=== PATIENT | male | born 1945 | race Caucasian/White ===

== ENCOUNTER 2016-03-25 09:40 | Inpatient (IN) | payer MEDICARE ==
[~2016-03-25] VITALS: Ht 172.7 cm; Wt 80.2 kg
[2016-03-29] MEDS ORDERED: ENAL20TA PO (15:53)
[2016-03-29] MEDS ORDERED: METF500T PO (15:53)
[2016-03-29] MEDS ORDERED: ROSU40 PO (15:53)
[2016-06-17] MEDS ORDERED: OXYC1TAB35 PO (10:44)
[2016-06-21] MEDS ORDERED: LACTATED RINGER'S 1000 ML IV SCH (11:15)
[2016-06-21] MEDS ORDERED: POVIDONE IODINE 7.5% SCRUB 118 ML BOTTLE TOP SCH (11:15)
[2016-06-21] MEDS ORDERED: ceFAZolin 2 GM PREMIX 50 ML IV SCH (11:15)
[2016-06-21] MEDS ORDERED: METOPROLOL TARTRATE 25 MG TAB PO PRN (11:15)
[2016-06-21] MEDS ORDERED: VANCOMYCIN 1000 MG/NS 250 ML (for <70 kg) IV SCH ×2 (11:15)
[2016-06-21] MEDS ORDERED: INSULIN HUMAN REGULAR 1,000 UNITS/10 ML VIAL SQ PRN (11:15)
[2016-06-21] MEDS ORDERED: SODIUM CHLORID 0.9% 500 ML IV SCH (11:15)
--- NOTE | 2016-06-21 11:26 | MH ---
cc: MATT MCNEILL M.D. DATE OF ADMISSION: 06/21/2016 ADMISSION DIAGNOSIS Lumbar spinal stenosis with instability. HISTORY This is a 70-year-old male with significant hip and leg pain, right greater than left. Investigative studies show evidence of high-grade stenosis at L4-5 and L5-S1. The patient has remarkable discogenic changes at L5-S1 and a grade 1 spondylolisthesis at L4 5. The patient had a previous laminectomy performed elsewhere. The patient has failed conservative measures. The patient has had extensive conservative care which is outlined in the attached records. He presents for surgical treatment. PAST MEDICAL HISTORY, SOCIAL HISTORY, FAMILY HISTORY, REVIEW OF SYSTEMS See attached notes. PHYSICAL EXAMINATION GENERAL: A 70-year-old male with moderate distress with his back, hip and legs. HEENT: Normocephalic, atraumatic. Pupils equal, round, reactive to light and accommodation. Extraocular motions intact. NECK: Supple. CHEST: Clear. HEART: Regular rate and rhythm. ABDOMEN: Soft, nontender with normoactive bowel sounds. MUSCULOSKELETAL EXAMINATION: Thoracolumbar spine with restricted range of motion, pain with range of motion. Straight leg raising is positive bilaterally. Motor examination shows weakness of the right extensor hallucis longus. IMPRESSION 1. Lumbar spinal stenosis L4-5 and L5-S1. 2. Lumbar instability. 3. Lumbar radiculopathy. 4. Status post lumbar laminectomy syndrome. 5. Discogenic low back pain, L5-S1. 6. Spondylolisthesis L4 5, grade 1 PLAN Right lumbar laminectomy L4-5 and L5-S1, lateral recess decompression, foraminal decompression, posterior spinal fusion, posterior spinal segmental instrumentation, posterior interbody fusion, placement of interbody cages. CONSENT There are risks with surgery including infection, bleeding, loss of motion, continued pain, need for further surgery, neurologic and vascular injury. The patient understands these issues and wishes to press on with surgery as outlined above. MD NICK Peerz/KARO /9:40 PM /10:22 AM [facility]ITALBina
[2016-06-21] MEDS ORDERED: NEOSTIGMINE 3 MG/3 ML SYR IV ONE (12:31)
[2016-06-21] MEDS ORDERED: ePHEDrine/NS 25 MG/5 ML SYR IV ONE (12:31)
[2016-06-21] MEDS ORDERED: ONDANSETRON HCL 4 MG/2 ML VIAL IV PUSH ONE (12:31)
[2016-06-21] MEDS ORDERED: PROPOFOL 200 MG/20 ML AMP IV ONE (12:31)
[2016-06-21] MEDS ORDERED: FAMOTIDINE 20 MG/2 ML VIAL ONE (13:10)
[2016-06-21] MEDS ORDERED: MIDAZOLAM HCL 2 MG/2 ML VIAL ONE (13:10)
[2016-06-21] MEDS ORDERED: GENTAMICIN SULFATE 80 MG/2 ML VIAL ONE (13:39)
[2016-06-21] MEDS ORDERED: HYDROmorphone HCL PF 2 MG/ML VIAL ONE (14:58)
[2016-06-21] MEDS ORDERED: ceFAZolin INJ 1,000 MG VIAL IV ONE (18:18)
[2016-06-21] MEDS ORDERED: ACETAMINOPHEN 1000 MG/100 ML VIAL IV ONE (18:31)
[2016-06-21] MEDS ORDERED: oxyCODONE/ACETAMINOPHEN 5 MG/325 MG TAB PO PRN ×2 (18:45)
[2016-06-21] MEDS ORDERED: NALOXONE HCL 0.4 MG/ML AMP IV PRN (18:45)
[2016-06-21] MEDS ORDERED: BISACODYL 10 MG SUPP PR PRN (18:45)
[2016-06-21] MEDS ORDERED: SODIUM CHLORIDE 0.9% FLUSH 5 ML FLUSH IVF PRN (18:45)
[2016-06-21] MEDS ORDERED: ONDANSETRON HCL 4 MG/2 ML VIAL IV PRN (18:45)
[2016-06-21] MEDS ORDERED: Post-op Orders (for Pharmacy) MISC XX ONE (18:45)
[2016-06-21] MEDS ORDERED: ALUMINUM/MAGNESIUM/SIMETH 30 ML CUP PO PRN (18:45)
[2016-06-21] MEDS ORDERED: SOD PHOSPHATE/SOD BIPHOSPHATE (ADULT) ENEMA 133ML PR PRN (18:45)
[2016-06-21] MEDS ORDERED: MORPHINE SULFATE 8 MG/ML INJ IV PUSH PRN (18:45)
--- NOTE | 2016-06-21 18:46 | PD.OP ---
cc: Kodak Cotter MD Operative Report Date of Surgery: Jun 21, 2016 Preoperative Diagnosis: Status post lumbar laminectomy syndrome. Lumbar spinal stenosis, L4 5 and moderate to severe. Lumbar spinal stenosis L5-S1, moderate. Right greater than left lumbosacral radiculopathy. Discogenic low back pain, L5-S1. Spondylolisthesis, L4 5, grade 1 Postoperative Diagnosis: Same Procedure: Lumbar laminectomy from the right L4, L5, lateral recess decompression, foraminal decompression with subtotal facet resection. Revision lumbar laminectomy from the right L5, S1, lateral recess decompression was subtotal facet resection. Posterior spinal fusion, lateral transverse process technique, L4 to S1. Posterior spinal segmental instrumentation, L4 to S1. Posterior lateral interbody fusion L4 5 and L5-S1. Placement of interbody cages, L4 5 and L5-S1. Major bone grafting of the lumbar spine Anesthesia: Gen. Surgeon: Kodak Cotter Hair Spring Cutter(s): HUE Best Operation and Findings: EBL: 300 cc INDICATION: This patient is a 71-year-old male status post previous laminectomy at L5 from the right side. The patient has debilitating back pain and leg pain. Studies shows evidence of very advanced discogenic changes at L5-S1 with significant bone marrow edema. In addition, there is a moderate to high-grade stenosis at L4 5 with a grade 1 spondylolisthesis. He has right leg pain predominantly. He presents for the above procedure after extensive conservative care that dates back over a year for treatment of back and leg pain. Treatment has included injections, oral medications, bracing, altered activities and physical therapy. He now presents for surgical treatment. NOTE: Yoselin Best PA-C was present for the entire surgical procedure as my certified first assistant. In my medical opinion her skill and care was necessary for the proper management of this patient. PROCEDURE: The patient was brought to the operating room and anesthetized in the supine position. The patient was rolled to a prone position on a Adebayo frame on a Lg table. All pressure points were protected in the back was scrubbed with alcohol followed by Hibiclens followed by ChloraPrep and draped sterilely. A timeout was done and antibiotics were given. AP and lateral radiographic images were used to identify the proper levels and perform skin markings. We started from the right side at the L4 5 level. A paramedian incision was made and a midline fascial incision was made. A dilating system was placed down to the interlaminar space and held provisionally to the side of the table. A high-speed bur under the microscope was used to perform a bilateral laminectomy from that side. A lateral recess decompression was accomplished. A subtotal facet resection was accomplished. The crossing and exiting nerve roots were completely decompressed. An annulotomy was performed. A total discectomy was accomplished. All of the disc was removed from the disc space. The disc was then prepared for a cage. On the back table a combination of autogenous bone graft and stem cell material was mixed with demineralized bone matrix. This prepared on the back table to be used for bone grafting. The bone graft was placed into the disc space between the operative level. A Stax lordotic cage was placed in the center between the endplates at that level. There was no complication. The alignment was satisfactory. No significant bleeding was encountered. The wound was irrigated copiously. The fascia was closed with interrupted 0 Vicryl suture. We moved to the L5-S1 level. A separate fascial incision was made. A dilating system was placed down to the interlaminar space and held provisionally to the side of the table. The microscope was brought back into the field. A high- speed bur under the microscope was used to perform a revision laminectomy from that side. A lateral recess decompression bilaterally was accomplished using straight and angled Kerrison punches. A partial medial facetectomy was accomplished. The crossing and exiting nerve roots were completely decompressed. A total discectomy was accomplished. The endplates were prepared for bone grafting. On the back table additional bone graft was prepared and injected into the disc space. A 25 mm Stax cage was positioned and elevated to 9 mm. No complication was noted. Percutaneous screws were placed on the same side with a sequence of a small fascial incision, a bur down to the pedicle under fluoroscopy and placement of the guidepin within the proper position of the vertebral body. This measured carefully tapped and proper length screws were positioned. A percutaneous benson was positioned according to superintendent horticulture's recommendation and tightened. Wounds irrigated copiously bone graft placed along the transverse process across that region. The fascia was closed with interrupted Vicryl suture subcutaneous history of suture and skin with running intradermal 3-0 Vicryl followed by Steri-Strips The attention directed to the opposite side. Percutaneous screws were positioned. Under fluoroscopy a small incision was made. An kacie was placed down through the pedicle followed by placement of a guide pin and measured and tapped for proper screw. Screws were positioned at L4, L5 and S1 as on the contralateral side. The screws were advanced and a percutaneous benson was placed according to superintendent horticulture's recommendation. This was then tightened. The wound was irrigated. Bone graft was placed along the transverse processes across that region. The fascia was closed with interrupted Vicryl suture, subcutaneous tissue with 2-0 Vicryl suture and skin with running intradermal 3- 0 Vicryl. Intraoperative x-rays were obtained alignment was satisfactory rotation was noted.. The sponge count needle counts and instrument counts were all correct. The patient tolerated procedure well was taken to the recovery room in satisfactory condition. FINDINGS: There was evidence of significant instability both at L4 5 and L5-S1. A moderate amount of scar tissue at L5-S1 was noted. There was some scar tissue even seen at the L4 5 level. The final decompression was very satisfactory. No complication was appreciated. There was no evidence of any compression upon the nerve roots at any level. Kodak Cotter MD Jun 21, 2016 18:46
[2016-06-21] MEDS ORDERED: OXYC1TAB63 PO (18:48)
[2016-06-21] MEDS ORDERED: GLUCAGON 1 MG/ML VIAL IM/SQ PRN (19:00)
[2016-06-21] MEDS ORDERED: DEXTROSE 50% IN WATER 50 ML VIAL(D50) IV PRN (19:00)
[2016-06-21] MEDS: MORPHINE SULFATE 30 MG/30 ML PCA IV SCH (19:25)
[2016-06-21] MEDS ORDERED: fentaNYL CITRATE 250 MCG/5 ML AMP ONE (19:31)
[2016-06-21] MEDS: LACTATED RINGER'S 1000 ML INJ 1,000 ML IV SCH (19:35)
[2016-06-21] MEDS: INSULIN NovoLIN REGULAR SUPPLEMENTAL SCALE SQ SCH (20:04)
[2016-06-21] MEDS: ATORVASTATIN 80 MG TAB PO SCH (20:12)
[2016-06-21] MEDS: SODIUM CHLORIDE 0.9% FLUSH 5 ML FLUSH IVF SCH (20:13)
--- NOTE | 2016-06-21 20:30 | RADRPT ---
EXAM DATE/TIME: 06/21/2016 18:16 [facility] COMPARISON: No previous studies available for comparison. INDICATIONS : Lumbar fusion, L4-5 and L5-S1. MEDICAL HISTORY : Unobtainable. SURGICAL HISTORY : Unobtainable. ENCOUNTER: Initial ACUITY: 1 day PAIN SCORE: Non-responsive. LOCATION: Lumbar. FINDINGS: Status post lumbar spinal surgery with fusion L4-5 and L5-S1. There is good alignment of the lower iris mbar spine and fusion. The hardware is grossly intact. CONCLUSION: Good alignment and position on this postoperative view. Von Forbes MD on June 21, 2016 at 20:28 Board Certified Radiologist. This report was verified electronically.
[2016-06-21] MEDS ORDERED: *morphine SULFATE 8 MG/ML PERIprocedure ONLY ONE (20:37)
[2016-06-21] MEDS ORDERED: ZOLPIDEM TARTRATE 5 MG TAB PO PRN (21:00)
[2016-06-21 21:11] VITALS: BP 121/64; PULSE 94; RESP 20; TEMP 97.6; O2SAT 98
[2016-06-21] MEDS: PCA - TOTAL MG MORPHINE DELIVERED PER SHIFT SCH (21:56)
[2016-06-21 22:00] VITALS: O2SAT 97
[2016-06-22] VITALS (7 sets, daily range): BP systolic 101–131; BP diastolic 60–75; PULSE 69–96; RESP 18–20; TEMP 96.5–97.7; O2SAT 95–100
[2016-06-22] MEDS: PCA - TOTAL MG MORPHINE DELIVERED PER SHIFT SCH (05:28)
[2016-06-22] MEDS: LACTATED RINGER'S 1000 ML INJ 1,000 ML IV SCH ×2 (06:03→19:33)
[2016-06-22] MEDS: INSULIN NovoLIN REGULAR SUPPLEMENTAL SCALE SQ SCH ×4 (06:03→21:12)
[2016-06-22] MEDS: MORPHINE SULFATE 30 MG/30 ML PCA IV SCH (06:04)
[2016-06-22 06:37] LABS: HEMATOCRIT 39.8 % (39.0-51.0); REVIEW FLAG FINAL
[2016-06-22] MEDS: ENALAPRIL MALEATE 10 MG TAB PO SCH (07:48)
[2016-06-22] MEDS: SODIUM CHLORIDE 0.9% FLUSH 5 ML FLUSH IVF SCH ×2 (07:49→21:13)
[2016-06-22] MEDS: metFORMIN HCL 500 MG TAB PO SCH ×2 (09:00→17:50)
--- NOTE | 2016-06-22 13:14 | HHI.DCPOC ---
Discharge Care Plan Diagnosis: (1) Lumbar spine instability (2) Lumbar spinal stenosis Your Health Problems Are: Incision/Drains Goals to Promote Your Health * To prevent worsening of your condition and complications * To maintain your health at the optimal level Directions to Meet Your Goals Take your medications as prescribed Follow your dietary instruction Follow activity as directed Keep your appointments as scheduled Take your immunizations and boosters as scheduled If your symptoms worsen call your PCP, if no PCP go to Urgent Care Center or Emergency Room Smoking is Dangerous to Your Health. Avoid second hand smoke Call the 24-hour hour crisis hotline for domestic abuse at Margi Tillman Jun 22, 2016 13:14
--- NOTE | 2016-06-22 13:16 | HHI.DS ---
Discharge Summary Admission Date Jun 21, 2016 at 10:41 Discharge Date: Jun 23, 2016 Admitting Diagnosis see below Diagnosis: (1) Lumbar spinal stenosis Diagnosis: Principal (2) Lumbar spine instability Diagnosis: Principal Procedures Laminectomy L45, Revision laminectomy L5S1 from right, Posterior lumbar fusion with interbody cages L4-S1, bone graft Brief History This is a 71 year old male patient with a history of previous surgical treatment L5S1 in [place]. He found that his leg pain resolved following surgery but he continued to have back pain. This increased over time. He pursued conservative measures including pain medications and injections. Eventually surgical fusion was recommended and he elected to move forward. CBC/BMP: 06/22/16 0501 Hospital Course Surgical treatment was performed on the day of admission without complication. He recovered well in pACU and was transferred to the orthopaedic floor. Pain was controlled with IV and oral medications. He was compliant with physical therapy, his lumbar brace and all restrictions. After 2 days he was found to be stable and discharged home with home health care with instruction to continue PT and to pursue a high fiber diet for the next 3-5 days. Pt Condition on Discharge: Stable Discharge Disposition: Disch w/ Home Health Serv Discharge Instructions Diet Instructions: Diabetic Diet, High Fiber Diet Activities You Can Perform: Weight Bearing as Maddy, See Additionl Instruction Activities to Avoid: Strenuous Activity Additional Activity Instruc.: Out of bed with brace for 10-12 weeks. Avoid NSAIDS for 10-12 weeks. New Medications: Oxycodone-Acetaminophen (Oxycodone-Acetaminophen) 5-325 mg Tab 1 TAB PO Q4H PRN PAIN SCALE 1 TO 5 #50 TAB Continued Medications: Enalapril (Enalapril) 20 Mg Tab 20 MG PO DAILY #30 Ref 0 TAB Metformin (Metformin) 500 Mg Tab 500 MG PO BIDPC With meals Blood Sugar Management #60 Ref 0 TAB Oxycodone-Acetaminophen (Oxycodone-Acetaminophen) 7.5-325 mg Tab 1 TAB PO Q6H PRN PAIN Ref 0 TAB Rosuvastatin (Crestor) 40 Mg Tab 40 MG PO HS Cholesterol Management #30 Ref 0 TAB Margi Tillman Jun 22, 2016 13:15
--- NOTE | 2016-06-22 13:21 | PD.ORT.PN ---
Subjective Subjective Remarks Pain controlled until early this am. Increased low back pain. Legs doing ' just fine'. Denies any new radiating leg pain. Urinating well. Appetite good. No other complaints. No CP or SOB. Objective Vitals Vital Signs Date Time Temp Pulse Resp B/P Pulse Ox O2 Delivery O2 Flow Rate FiO2 06/22/16 08:25 95 Nasal Cannula 3.00 06/22/16 08:00 97.6 69 18 101/60 99 06/22/16 06:04 16 06/22/16 05:28 16 06/22/16 00:41 97.4 96 20 121/67 97 06/21/16 22:00 97 Nasal Cannula 3.00 06/21/16 21:56 18 06/21/16 21:11 97.6 94 20 121/64 98 06/21/16 21:00 98.6 70 15 120/71 98 Nasal Cannula 2 06/21/16 20:30 74 17 122/71 99 Nasal Cannula 3 06/21/16 20:00 80 19 124/70 99 Nasal Cannula 3 06/21/16 19:45 75 15 102/52 98 Nasal Cannula 3 06/21/16 19:30 70 14 102/52 99 Nasal Cannula 5 06/21/16 19:25 15 06/21/16 19:15 84 14 94/54 99 Nasal Cannula 5 06/21/16 19:00 98.8 76 15 80/44 96 Nasal Cannula 5 I/O 06/21/16 06/21/16 06/21/16 06/22/16 06/22/16 06/22/16 07:00 15:00 23:00 07:00 15:00 23:00 Intake Total 3145 ml 240 ml Output Total 1120 ml 450 ml Balance 2025 ml -210 ml Intake Oral 145 ml 240 ml Other 3000 ml Output Urine Total 220 ml 450 ml Estimated Blood Loss 300 ml Other 600 ml # Bowel Movements 0 0 Result Diagram: 06/22/16 0501 Procedures Rev Lami L5S1, Bilat Lami L45, Fusion L4-S1 Objective Remarks Sitting up in chair, at bedside NAD VSS L/S Dressing intact, mild SS drainage, mild spasm, no erythema +motor ehl/at, +sens, +nvi Neg homans bilat Assessment & Plan Ortho Post Op Day #: 1 Problem List: (1) Lumbar spinal stenosis (2) Lumbar spine instability Assessment and Plan pod#1 s/p Rev Lami L5S1, Lami L45, PSF L4-S1 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 Was on Percocet 5mg. WIll change to Percocet 10mg Ext release bid. This has worked well for him in the past. Dry dressing changes daily beginning pod#2. 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 D/C planning, likely home w [facility] tomorrow. Some discussion about today but I do not believe he is ready. F/U in 2 weeks as scheduled. Margi Tillman Jun 22, 2016 13:21
[2016-06-22] MEDS ORDERED: WALKER WHEELS/F1 MIS (13:22)
--- NOTE | 2016-06-22 13:22 | HHI.FF ---
Face to Face Verification Diagnosis: (1) Lumbar spinal stenosis (2) Lumbar spine instability Physical Therapy Gait training, Safety evaluation S/P Spinal Fusion: Gait training with walker, Weight bearing as tolerated, No twisting of torso, No bending Additional Instructions PT 5 days/wk for one week. WBAT w walker. 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 Nursing RN Days per Week: 5 x Week(s): 1 Nursing: Dressing changes Dressing Changes: Daily dressing change, 4x4s, Coverderm/Primapore Additional Instructions Dry dressing change daily w etoh for one week. I have seen patient David Robert on 06/22/16. My clinical findings support the need for the requested home health care services because: Limited ability to care for self High risk of falls I certify that my clinical findings support that this patient is homebound because: Post-op weakness Unsteady gait/balance Margi Tillman Jun 22, 2016 13:22
[2016-06-22] MEDS ORDERED: oxyCODONE HCL 10 MG CONTROLLED RELEASE TAB PO SCH (15:00)
[2016-06-22] MEDS: oxyCODONE/ACETAMINOPHEN 10 MG/325 MG TAB PO PRN ×2 (17:35→21:53)
[2016-06-22] MEDS: ATORVASTATIN 80 MG TAB PO SCH (21:11)
[2016-06-22] MEDS: DOCUSATE SODIUM 100 MG CAP PO SCH (21:11)
[2016-06-23 00:02] VITALS: BP 106/56; PULSE 73; RESP 24; TEMP 98.1; O2SAT 97
[2016-06-23] MEDS: oxyCODONE/ACETAMINOPHEN 10 MG/325 MG TAB PO PRN ×4 (02:26→15:35)
[2016-06-23] MEDS: INSULIN NovoLIN REGULAR SUPPLEMENTAL SCALE SQ SCH ×2 (06:11→11:00)
[2016-06-23 08:00] VITALS: BP 115/71; PULSE 81; RESP 18; TEMP 96.6; O2SAT 97
[2016-06-23] MEDS: LACTATED RINGER'S 1000 ML INJ 1,000 ML IV SCH (08:03)
[2016-06-23] MEDS: metFORMIN HCL 500 MG TAB PO SCH (08:06)
[2016-06-23] MEDS: DOCUSATE SODIUM 100 MG CAP PO SCH (08:07)
[2016-06-23] MEDS: ENALAPRIL MALEATE 10 MG TAB PO SCH (08:07)
[2016-06-23] MEDS: SODIUM CHLORIDE 0.9% FLUSH 5 ML FLUSH IVF SCH (08:09)
--- NOTE | 2016-06-23 10:05 | PD.ORT.PN ---
Subjective Subjective Remarks Difficulty with pain control yesterday. Apparently he went '8 hours without pain meds yesterday'. Increased low back pain. Legs are still doing well. Mild discomfort with urination yesterday. No other complaints. No CP or SOB. Appetite good. No CP, abd pain, fever or SOB. Objective Vitals Vital Signs Date Time Temp Pulse Resp B/P Pulse Ox O2 Delivery O2 Flow Rate FiO2 06/23/16 08:00 96.6 81 18 115/71 97 06/23/16 00:02 98.1 73 24 106/56 97 06/22/16 20:47 96.5 84 20 103/62 98 06/22/16 18:15 98 21 06/22/16 16:00 97.7 76 18 131/75 100 06/22/16 12:00 97.0 77 18 119/64 98 I/O 06/22/16 06/22/16 06/22/16 06/23/16 06/23/16 06/23/16 07:00 15:00 23:00 07:00 15:00 23:00 Intake Total 240 ml 720 ml 360 ml 360 ml Output Total 450 ml Balance -210 ml 720 ml 360 ml 360 ml Intake Oral 240 ml 720 ml 360 ml 360 ml Output Urine Total 450 ml # Voids 2 2 1 # Bowel Movements 0 0 0 0 Result Diagram: 06/22/16 0501 Procedures Laminectomy L45, Revision laminectomy L5S1 from right, Posterior lumbar fusion with interbody cages L4-S1, bone graft Objective Remarks Sitting up in chair, at bedside NAD VSS L/S Dressing intact, no new drainage, mild spasm, no erythema +motor ehl/at, +sens, +nvi Neg homans bilat Assessment & Plan Ortho Post Op Day #: 2 Problem List: (1) Lumbar spinal stenosis (2) Lumbar spine instability Assessment and Plan pod#2 s/p Rev Lami L5S1, Lami L45, PSF L4-S1 Pt currently on PO percocet 10 [id number]. There were issues in coordinating hjs po pain meds yesterday. Apparently when I switched the meds to an extended release the pharmacy was struggling coordinating this. A phone call was made to myself around 2:45-3pm and we switched to Perc 10mg q 4h. For some reason he did not get his does of pain med until almost 5:30. The charge nurse is looking into this. Continue with PT - WBAT w walker. 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 Dry dressing changes daily beginning today then daily. D/C planning, likely home w [facility] today. If significant pain uncontrolled wait to d/c until tomorrow. F/U in 2 weeks as scheduled. F2F written. DME written. Margi Tillman Jun 23, 2016 10:04
[2016-06-23] MEDS ORDERED: OXYC1TAB36 PO (10:12)
[2016-06-23 10:42] LABS: BLOOD, URINE NEG (NEG); GLUCOSE,URINE TRACE mg/dL (NEG); HYALINE CAST, URINE 1 /lpf (RARE); KETONE, URINE TRACE mg/dL (NEG); MUCUS URINE FEW /lpf (OCC); NITRITE,URINE NEG (NEG); URINE COLOR YELLOW (YELLW/STRAW)
[2016-06-23 11:06] LABS: COMMENT (UR) CULT NOT INDICATED; CULTURE IF INDICATED CULT NOT INDICATED
[2016-06-23 12:06] VITALS: BP 112/67; PULSE 77; RESP 17; TEMP 97.1; O2SAT 99
[2016-06-23 12:30] LABS: HEMATOCRIT 41.9 % (39.0-51.0); MEAN CELL VOLUME 87.4 FL (80.0-100.0); MEAN CORPUSCULAR HEMOGLOBIN 28.3 PG (27.0-34.0); MEAN CORPUSCULAR HGB CONC 32.4 % (32.0-36.0); PLATELET COUNT 213 TH/MM3 (150-450); RED BLOOD COUNT 4.79 MIL/MM3 (4.50-5.90); RED CELL DISTRIBUTION WIDTH 14.5 % (11.6-17.2); WHITE BLOOD COUNT 10.9 TH/MM3 (4.0-11.0)
[2016-06-23 12:36] LABS: HEMO FLAGS AUTO DIFF
[2016-06-23 13:20] LABS: BANDS 2 % (0-6); NEUTROPHIL # MANUAL DIFF 7.2 TH/MM3 (1.8-7.7); PLATELET ESTIMATE SMEAR NORMAL (NORMAL); PLATELET MORPHOLOGY NORMAL (NORMAL); POLYS (SEG NEUTROPHILS) 64 % (16-70); SCAN/DIFF FINAL DIFF MANUAL; WBC DIFF SAMPLE 100
== END 2016-06-23 20:18 | disposition home health service (06) | DRG 460 ==
LOC: HSDI 06-21 10:41 → N06B 06-21 21:13
PROVIDERS: ADMIT Orthopaedic Surgery Orthopaedic Surgery of the Spine; ATTEND Orthopaedic Surgery Orthopaedic Surgery of the Spine
PROC: 0SG30A1 (ICD-10-PCS; 2016-06-21)
PROC: 0ST20ZZ Resection of Lumbar Vertebral Disc, Open Approach (ICD-10-PCS; 2016-06-21)
PROC: 0ST40ZZ Resection of Lumbosacral Disc, Open Approach (ICD-10-PCS; 2016-06-21)
PROC: 0SG00A1 (ICD-10-PCS; principal; 2016-06-21 13:50)
DX: M48.06 Spinal stenosis, lumbar region (principal); I10 Essential (primary) hypertension; M19.90 Unspecified osteoarthritis, unspecified site; M53.2X6 Spinal instabilities, lumbar region; M51.16 Intervertebral disc disorders with radiculopathy, lumbar region; M48.07 Spinal stenosis, lumbosacral region; M43.16 Spondylolisthesis, lumbar region; M96.1 Postlaminectomy syndrome, not elsewhere classified; E78.5 Hyperlipidemia, unspecified; Z79.01 Long term (current) use of anticoagulants
CPT/HCPCS: 72100; 76000; 81001; 82948; 85007; 85014; 85018; 85027; 86850; 86900; 86901; 94150; C1713; J0131; J0690; J1170; J1580; J2250; J2270; J2405; J2710; J3010; J7120

== ENCOUNTER 2016-04-17 12:20 | Inpatient (IN) | payer MEDICARE ==
[~2016-04-17] VITALS: Ht 175.3 cm; Wt 77.7 kg
[2016-04-17] VITALS (9 sets, daily range): BP systolic 106–146; BP diastolic 62–83; PULSE 87–123; RESP 16–20; TEMP 98.3–101.5; O2SAT 98–100
[~2016-04-17 12:20] MED LIST: CYCL5TAB PO; ENAL20TA PO; METF500T PO; PERC5TAB12 PO; RAPA8CAP PO; ROSU40 PO
[2016-04-17] MEDS ORDERED: PIPERACIL-TAZO 4.5 GM PREMIX 100 ML IV STA (12:58)
[2016-04-17] MEDS ORDERED: ACETAMINOPHEN 325 MG TAB PO ONE (13:00)
[2016-04-17] MEDS ORDERED: SODIUM CHLOR 0.9% 1000 ML INJ 1,000 ML IV ONE ×2 (13:00→14:00)
--- NOTE | 2016-04-17 13:05 | PD ---
HPI Chief Complaint: Pain: Acute or Chronic Time Seen by Provider: 12:50 Travel History International Travel<30 days: No Contact w/Intl Traveler<30days: No Traveled to known affect area: No History of Present Illness HPI This 71-year-old male is complaining of back pain and fever. He has a history of back pain related to degenerative disc disease. He was supposed to have surgery with Dr. Henley but was canceled because he would have been coughing. Last 90 days or so his been having some trouble urinating. To see Dr. Harper. He thought it might be related to the cortisone he been getting for his back problems. He did have a biopsy of his prostate on April 04. After the biopsy he was put on Cipro 6 days. He finished the Cipro yesterday. He has had a dry cough. He has burning with urination PFSH Past Medical History High Cholesterol: Yes Diabetes: Yes ("BORDERLINE") Patient Takes Glucophage: No Diminished Hearing: No Hypertension: Yes Musculoskeletal: Yes (DJD) Tetanus Vaccination: Unknown Social History Alcohol Use: Yes (occas. wine) Tobacco Use: No Substance Use: No Allergies-Medications (Allergen,Severity, Reaction): Coded Allergies: No Known Allergies (Unverified , 04/17/16) Reported Meds & Prescriptions Reported Meds & Active Scripts Active Reported Crestor (Rosuvastatin Calcium) 40 Mg Tab 40 Mg PO HS Percocet (Oxycodone-Acetaminophen) 5-325 mg Tab 1 Tab PO Q6H PRN Metformin (Metformin HCl) 500 Mg Tab 500 Mg PO BIDPC With meals Enalapril (Enalapril Maleate) 20 Mg Tab 20 Mg PO DAILY Rapaflo (Silodosin) 8 Mg Cap 8 Mg PO DAILY Review of Systems General / Constitutional: Positive: Fever, Chills Eyes: No: Blurred Vision HENT: No: Headaches, Vertigo Cardiovascular: No: Chest Pain or Discomfort Respiratory: Positive: Cough Gastrointestinal: No: Nausea, Vomiting Genitourinary: Positive: Urgency, Frequency, Dysuria Musculoskeletal: No: Myalgias Skin: No Rash Physical Exam Narrative GENERAL: Well-developed male SKIN: Warm and dry. HEAD: Atraumatic. Normocephalic. EYES: Pupils equal and round. No scleral icterus. No injection or drainage. ENT: No nasal bleeding or discharge. Mucous membranes pink and moist. NECK: Trachea midline. No JVD. CARDIOVASCULAR: Rapid Regular rate and rhythm. No murmur appreciated. RESPIRATORY: No accessory muscle use. Clear to auscultation. Breath sounds equal bilaterally. GASTROINTESTINAL: Abdomen soft, non-tender, nondistended. Hepatic and splenic margins not palpable. MUSCULOSKELETAL: No obvious deformities. No clubbing. No cyanosis. No edema. NEUROLOGICAL: Awake and alert. No obvious cranial nerve deficits. Motor grossly within normal limits. Normal speech. PSYCHIATRIC: Appropriate mood and affect; insight and judgment normal. Data Data Last Documented VS Vital Signs Date Time Temp Pulse Resp B/P Pulse Ox O2 Delivery O2 Flow Rate FiO2 04/17/16 14:12 93 16 146/74 100 Nasal Cannula 2 04/17/16 13:15 98.8 Orders Urinalysis - C+S If Indicated (04/17/16 12:27) Complete Blood Count With Diff (04/17/16 12:58) Comprehensive Metabolic Panel (04/17/16 12:58) Lactic Acid Sepsis Protocol (04/17/16 12:58) Blood Culture (04/17/16 12:58) Chest, Single Ap (04/17/16 12:58) Ecg Monitoring (04/17/16 12:58) Iv Access Insert/Monitor (04/17/16 12:58) Oximetry (04/17/16 12:58) Oxygen Administration (04/17/16 12:58) Acetaminophen (Tylenol) (04/17/16 13:00) Piperacil-Tazo 4.5 Gm Premix (Zosyn 4.5 (04/17/16 12:58) Sodium Chlor 0.9% 1000 Ml Inj (Ns 1000 M (04/17/16 13:00) Sodium Chlor 0.9% 1000 Ml Inj (Ns 1000 M (04/17/16 14:00) Oxycodone-Acetamin 5-325 Mg (Percocet (04/17/16 14:30) Urine Culture (04/17/16 14:00) Gentamicin Inj (Gentamicin Inj) (04/17/16 15:00) Labs Laboratory Tests Test 04/17/16 04/17/16 12:50 14:00 White Blood Count 15.2 TH/MM3 Red Blood Count 5.79 MIL/MM3 Hemoglobin 16.3 GM/DL Hematocrit 49.7 % Mean Corpuscular Volume 85.9 FL Mean Corpuscular Hemoglobin 28.1 PG Mean Corpuscular Hemoglobin 32.8 % Concent Red Cell Distribution Width 12.8 % Platelet Count 322 TH/MM3 Mean Platelet Volume 7.2 FL Neutrophils (%) (Auto) 83.1 % Lymphocytes (%) (Auto) 7.4 % Monocytes (%) (Auto) 6.2 % Eosinophils (%) (Auto) 0.3 % Basophils (%) (Auto) 3.0 % Neutrophils # (Auto) 12.7 TH/MM3 Lymphocytes # (Auto) 1.1 TH/MM3 Monocytes # (Auto) 0.9 TH/MM3 Eosinophils # (Auto) 0.0 TH/MM3 Basophils # (Auto) 0.5 TH/MM3 CBC Comment AUTO DIFF Differential Comment AUTO DIFF CONFIRMED Sodium Level 139 MEQ/L Potassium Level 3.9 MEQ/L Chloride Level 102 MEQ/L Carbon Dioxide Level 23.9 MEQ/L Anion Gap 13 MEQ/L Blood Urea Nitrogen 11 MG/DL Creatinine 1.00 MG/DL Estimat Glomerular Filtration 74 ML/MIN Rate Random Glucose 117 MG/DL Lactic Acid Level 2.0 mmol/L Calcium Level 9.1 MG/DL Total Bilirubin 1.4 MG/DL Aspartate Amino Transf 13 U/L (AST/SGOT) Alanine Aminotransferase 18 U/L (ALT/SGPT) Alkaline Phosphatase 82 U/L Total Protein 8.3 GM/DL Albumin 3.7 GM/DL Urine Collection Type CLEAN CATCH Urine Color YELLOW Urine Turbidity CLOUDY Urine pH 8.5 Urine Specific [place] 1.020 Urine Protein 30 mg/dL Urine Glucose (UA) NEG mg/dL Urine Ketones 15 mg/dL Urine Occult Blood LARGE Urine Nitrite NEG Urine Bilirubin NEG Urine Leukocyte Esterase MOD Urine RBC 0-3 /hpf Urine WBC 25-49 /hpf Urine WBC Clumps OCC Microscopic Urinalysis Comment CULTURE INDICATED MDM Medical Decision Making Medical Screen Exam Complete: Yes Emergency Medical Condition: Yes Medical Record Reviewed: Yes Differential Diagnosis Differential includes sepsis, UTI, pneumonia Narrative Course Patient has been given IV fluids. His white count is elevated. His lactate is 2. He has been given Zosyn and gentamicin. Sepsis Criteria SIRS Criteria (2 or more): Temp > 100.9 or < 96.8, Heart rate over 90, WBC > 24556, < 4000 or > 10% bands Sepsis Criteria (SIRS+source): Infect source susp/known Criteria Outcome: Meets sepsis criteria Diagnosis Primary Impression: Urinary tract infection Qualified Code: N30.00 - Acute cystitis without hematuria Additional Impression: Sepsis Qualified Code: A41.9 - Sepsis, due to unspecified organism Admitting Information Admitting Physician Requests: Elías Gates MD Apr 17, 2016 13:05
[2016-04-17 13:15] LABS: AUTOMATED NEUTROPHIL # 12.7 TH/MM3 (1.8-7.7); BASOPHIL # 0.5 TH/MM3 (0-0.2); EOSINOPHIL % 0.3 % (0.0-4.0); HEMATOCRIT 49.7 % (39.0-51.0); LYMPH % 7.4 % (9.0-44.0); LYMPHOCYTE # 1.1 TH/MM3 (1.0-4.8); MEAN CELL VOLUME 85.9 FL (80.0-100.0); MEAN CORPUSCULAR HEMOGLOBIN 28.1 PG (27.0-34.0); MEAN CORPUSCULAR HGB CONC 32.8 % (32.0-36.0); MONO % 6.2 % (0.0-8.0); NEUT % 83.1 % (16.0-70.0); PLATELET COUNT 322 TH/MM3 (150-450); RED BLOOD COUNT 5.79 MIL/MM3 (4.50-5.90); RED CELL DISTRIBUTION WIDTH 12.8 % (11.6-17.2); WHITE BLOOD COUNT 15.2 TH/MM3 (4.0-11.0)
[2016-04-17 13:23] LABS: CHLORIDE 102 MEQ/L (98-107); POTASSIUM 3.9 MEQ/L (3.5-5.1); SODIUM (NA) 139 MEQ/L (136-145)
[2016-04-17 13:24] LABS: HEMO FLAGS AUTO DIFF
[2016-04-17 13:27] LABS: ANION GAP 13 MEQ/L (5-15); BICARBONATE 23.9 MEQ/L (21.0-32.0)
[2016-04-17 13:28] LABS: BLOOD UREA NITROGEN 11 MG/DL (7-18)
[2016-04-17 13:30] LABS: ALT (GPT) 18 U/L (12-78); AST (GOT) 13 U/L (15-37)
[2016-04-17 13:31] LABS: GLOMERULAR FILTRATION RATE 74 ML/MIN (>89)
[2016-04-17 13:32] LABS: TOTAL BILIRUBIN ADULT 1.4 MG/DL (0.2-1.0)
[2016-04-17 13:33] LABS: ALKALINE PHOSPHATASE 82 U/L (45-117)
[2016-04-17 13:44] LABS: SCAN/DIFF AUTO DIFF CONFIRMED
--- NOTE | 2016-04-17 13:51 | RADHPO ---
EXAM DATE/TIME: 04/17/2016 13:42 [place] COMPARISON: No previous studies available for comparison. INDICATIONS : Fever, cough MEDICAL HISTORY : None. SURGICAL HISTORY : None. ENCOUNTER: Initial ACUITY: 2 days PAIN SCORE: 0/10 LOCATION: Bilateral chest FINDINGS: A single view of the chest demonstrates the lungs to be symmetrically aerated without evidence of mas s, infiltrate or effusion. The cardiomediastinal contours are unremarkable. Osseous structures are intact. CONCLUSION: No acute disease. Kenneth Santoyo MD FACR on April 17, 2016 at 13:50 Board Certified Radiologist. This report was verified electronically.
[2016-04-17 14:25] LABS: BLOOD, URINE LARGE (NEG); GLUCOSE,URINE NEG (NEG); KETONE, URINE 15 mg/dL (NEG); NITRITE,URINE NEG (NEG); PH, URINE 8.5 (5.0-8.5)
[2016-04-17 14:26] LABS: METHOD OF COLLECTION CLEAN CATCH; URINE COLOR YELLOW (YELLW/STRAW)
[2016-04-17] MEDS ORDERED: oxyCODONE/ACETAMINOPHEN 5 MG/325 MG TAB PO ONE (14:30)
[2016-04-17 14:40] LABS: COMMENT (UR) CULTURE INDICATED; CULTURE IF INDICATED CULTURE INDICATED; RBC, URINE 0-3 /hpf (0-3)
[2016-04-17] MEDS ORDERED: ACETAMINOPHEN 325 MG TAB PO PRN (15:00)
[2016-04-17] MEDS ORDERED: ONDANSETRON HCL 4 MG/2 ML VIAL IVP PRN (15:00)
[2016-04-17] MEDS ORDERED: NALOXONE HCL 0.4 MG/ML AMP IV PRN (15:00)
[2016-04-17] MEDS ORDERED: Gentamicin Consult Pharmacy 1 EA OTHER SCH (15:00)
[2016-04-17] MEDS ORDERED: DEXTROSE 50% IN WATER 50 ML VIAL(D50) IV PUSH PRN (15:00)
[2016-04-17] MEDS ORDERED: SODIUM CHLORIDE 0.9% IV ONE (15:00)
[2016-04-17] MEDS ORDERED: GLUCAGON 1 MG/ML VIAL OTHER PRN (15:00)
[2016-04-17] MEDS ORDERED: SODIUM CHLORIDE 0.9% FLUSH 5 ML FLUSH FLUSH PRN (15:00)
[2016-04-17] MEDS ORDERED: GENTAMICIN IV ONE (15:00)
[2016-04-17] MEDS ORDERED: oxyCODONE/ACETAMINOPHEN 5 MG/325 MG TAB PO PRN ×2 (15:00→19:00)
[2016-04-17] MEDS: SODIUM CHLOR 0.9% 1000 ML INJ 1,000 ML IV SCH (15:05)
[2016-04-17] MEDS: DOCUSATE SODIUM 100 MG CAP PO SCH (15:50)
[2016-04-17] MEDS: INSULIN ASPART SUPPLEMENTAL SCALE SQ SCH ×2 (15:53→21:00)
--- NOTE | 2016-04-17 17:00 | HHI.HP ---
[facility] Ant Ellison MD Admission Diagnosis UTI, SEPSIS Diagnoses: (1) Sepsis (2) Urinary tract infection (3) Prostatitis (4) Urinary retention Travel History International Travel<30 Days: No Contact w/Intl Traveler <30 Da: No Traveled to Known Affected Are: No History of Present Illness This is a pleasant 71 year-old female with past medical history prediabetes, recently diagnosed with BPH, who underwent a prostate biopsy with Dr. Harper on April 04. He was prescribed a course of Cipro which she completed yesterday. This morning he woke up with severe low back pain and a fever of 104. He also had a small amount of blood in his underwear which has not been unusual since the prostate biopsy however he states it was mixed with yellowish fluid. He states the back pain is his typical low back pain for which he sees Dr. Cotter and they're planning to do a L4 to L5 laminectomy in the near future. He also had a fever of 104 this morning. The patient states that over the past several months he's had intermittent problems with urine straining and incomplete emptying of his bladder. He states that he takes Rapaflo intermittently but has been taking it over the past 2-3 days. He is here like he is having a lot of difficulty getting urine out and thinks he may be retaining urine. His bladder scan at bedside is 360 but he feels he can void now. I've asked the nurse to do a postvoid residual bladder volume. The patient denies any abdominal pain. He states that he did have a mild amount of anal pain this morning when he woke. Patient denies nausea or vomiting. Denies chills. In the ER he was found to be febrile with temperature of 101, white blood cell count of 15,000 with mild left shift, pulse initially was 122. Lactic acid 2. Blood pressure stable. Patient received 2 L IV fluid bolus blood cultures and urine cultures and a dose of gentamicin and Zosyn. Review of Systems Constitutional: COMPLAINS OF: Fever, DENIES: Chills Ears, nose, mouth, throat: DENIES: Hoarseness, Running Nose Respiratory: COMPLAINS OF: Cough (dry cough), Shortness of breath (transient SOB this morning with fever), DENIES: Sputum production Cardiovascular: DENIES: Chest pain, Palpitations Gastrointestinal: DENIES: Abdominal pain, Nausea, Vomiting Genitourinary: COMPLAINS OF: Urgency, Dysuria Musculoskeletal: COMPLAINS OF: Back pain (chronic low back pain) Integumentary: DENIES: Rash Hematologic/lymphatic: DENIES: Lymphadenopathy Neurologic: COMPLAINS OF: Headache, DENIES: Abnormal gait Psychiatric: DENIES: Anxiety, Confusion Past Family Social History Past Medical History Prediabetes HTN BPH Chronic low back pain / DJD - for L3-L4 laminectomy in near future hx SD - nml recent stress test with Dr. Doyle - no hx [facility] Past Surgical History discectomy 07/10/15 rhizotomy 03/15/16 Reported Medications Allergies Coded Allergies Type Severity Reaction Last Updated Verified No Known Allergies 04/17/16 No Active Scripts Medications Dose Route/Sig Days Date Category Dose Instructions Crestor (Rosuvastatin Calcium) 40 Mg Tab 40 Mg PO HS 03/29/16 Reported Percocet (Oxycodone-Acetaminophen) 5-325 mg Tab 1 Tab PO Q6H PRN 03/29/16 Reported Metformin (Metformin HCl) 500 Mg Tab 500 Mg PO BIDPC 03/29/16 Reported With meals Enalapril (Enalapril Maleate) 20 Mg Tab 20 Mg PO DAILY 03/29/16 Reported Rapaflo (Silodosin) 8 Mg Cap 8 Mg PO DAILY 03/29/16 Reported Allergies: Coded Allergies: No Known Allergies (Unverified , 04/17/16) Family History father - CAD - CABG age 55 - passed of SD age 61 Social History Never smoked [employer] 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 SKIN: Warm and dry. well perfused. HEAD: Normocephalic. EYES: No scleral icterus. No injection or drainage. NECK: Supple, trachea midline. No JVD or lymphadenopathy. CARDIOVASCULAR: Regular rate and rhythm without murmurs, gallops, or rubs. good radial pulses. RESPIRATORY: Breath sounds equal bilaterally. No accessory muscle use. GASTROINTESTINAL: Abdomen soft, non-tender, nondistended. EXTREMITIES: No cyanosis, or edema. NEUROLOGICAL: Awake, alert, and oriented x 3. Non-focal. Laboratory Laboratory Tests Test 04/17/16 04/17/16 12:50 14:00 White Blood Count 15.2 Red Blood Count 5.79 Hemoglobin 16.3 Hematocrit 49.7 Mean Corpuscular Volume 85.9 Mean Corpuscular Hemoglobin 28.1 Mean Corpuscular Hemoglobin 32.8 Concent Red Cell Distribution Width 12.8 Platelet Count 322 Mean Platelet Volume 7.2 Neutrophils (%) (Auto) 83.1 Lymphocytes (%) (Auto) 7.4 Monocytes (%) (Auto) 6.2 Eosinophils (%) (Auto) 0.3 Basophils (%) (Auto) 3.0 Neutrophils # (Auto) 12.7 Lymphocytes # (Auto) 1.1 Monocytes # (Auto) 0.9 Eosinophils # (Auto) 0.0 Basophils # (Auto) 0.5 CBC Comment AUTO DIFF Differential Comment AUTO DIFF CONFIRMED Sodium Level 139 Potassium Level 3.9 Chloride Level 102 Carbon Dioxide Level 23.9 Anion Gap 13 Blood Urea Nitrogen 11 Creatinine 1.00 Estimat Glomerular Filtration 74 Rate Random Glucose 117 Lactic Acid Level 2.0 Calcium Level 9.1 Total Bilirubin 1.4 Aspartate Amino Transf 13 (AST/SGOT) Alanine Aminotransferase 18 (ALT/SGPT) Alkaline Phosphatase 82 Total Protein 8.3 Albumin 3.7 Urine Collection Type CLEAN CATCH Urine Color YELLOW Urine Turbidity CLOUDY Urine pH 8.5 Urine Specific [place] 1.020 Urine Protein 30 Urine Glucose (UA) NEG Urine Ketones 15 Urine Occult Blood LARGE Urine Nitrite NEG Urine Bilirubin NEG Urine Leukocyte Esterase MOD Urine RBC 0-3 Urine WBC 25-49 Urine WBC Clumps OCC Microscopic Urinalysis Comment CULTURE INDICATED Date/Time Procedure Status Source Growth 04/17/16 14:00 Urine Culture Received Urine Clean Catch Pending 04/17/16 13:05 Aerobic Blood Culture Received Blood Peripheral Pending 04/17/16 13:05 Anaerobic Blood Culture Received Blood Peripheral Pending Result Diagram: 04/17/16 1250 04/17/16 1250 Imaging Last Impressions Chest X-Ray 04/17/16 1258 Signed Impressions: Service Date/Time: Sunday, April 17, 2016 13:42 - CONCLUSION: No acute disease. Kenneth Santoyo MD FACR Assessment and Plan Assessment and Plan -Sepsis due to UTI and prostatitis. S/p prostate biopsy on 04/[address] Harper. Was on Cipro for the past 10 days and has just completed it yesterday. Vital signs stable and lactic acid only 2. We'll continue with IV fluids, IV antibiotics of gentamicin and Rocephin. Follow-up urine culture and blood cultures. -Difficulty voiding. Postvoid residual is 482. Consult urology - d/w Dr. Choi. -Prediabetes - hold metformin while inpatient. -HTN - cont enalapril -BPH - continue rapaflo, pt encouraged to take it consistently. Chronic low back pain / DJD - for L3-L4 laminectomy in near future - cont percocet as needed, colace scheduled -DVT px - SCDs Problem Qualifiers (1) Sepsis: Qualified Code: A41.9 - Sepsis, due to unspecified organism (2) Urinary tract infection: Qualified Code: N30.00 - Acute cystitis without hematuria Binta Valenzuela MD Apr 17, 2016 16:59
--- NOTE | 2016-04-17 17:44 | PD.CONS ---
[facility] Service Urology Consult Requested By Dr. Claudia Valenzuela Reason for Consult Acute septic prostatitis post prostate biopsy. Primary Care Physician Ant Ellison MD Diagnosis: (1) Sepsis ICD Code: A41.9 (2) Prostatitis ICD Code: N41.9 (3) Urinary tract infection ICD Code: N39.0 (4) Urinary retention ICD Code: R33.9 History of Present Illness ER and Dr. Valenzuela's H&P reviewed. Bx 04-[address] Harper. Fever 104. Great difficulty voiding. PVR 350 ml. Past Family Social History Past Medical History EMR reviewed. Past Surgical History EMR reviewed. 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 Physical Exam Vital Signs Vital Signs Date Time Temp Pulse Resp B/P Pulse Ox O2 Delivery O2 Flow Rate FiO2 04/17/16 15:51 102 16 106/62 98 Nasal Cannula 2 04/17/16 14:12 93 16 146/74 100 Nasal Cannula 2 04/17/16 13:18 100 Nasal Cannula 2 04/17/16 13:17 16 100 Room Air 04/17/16 13:15 98.8 04/17/16 12:45 98.3 114 16 135/83 100 Room Air 04/17/16 12:26 101.5 123 16 138/82 100 Physical Exam GENERAL: This is a well-nourished, well-developed patient, in no apparent distress. SKIN: No rashes, ecchymoses or lesions. Cool and dry. HEAD: Atraumatic. Normocephalic. No temporal or scalp tenderness. EYES: Pupils equal round and reactive. Extraocular motions intact. No scleral icterus. No injection or drainage. ENT: Nose without bleeding, purulent drainage or septal hematoma. Throat without erythema, tonsillar hypertrophy or exudate. Uvula midline. Airway patent. NECK: Trachea midline. No JVD or lymphadenopathy. Supple, nontender, no meningeal signs. CARDIOVASCULAR: Regular rate and rhythm without murmurs, gallops, or rubs. RESPIRATORY: Clear to auscultation. Breath sounds equal bilaterally. No wheezes , rales, or rhonchi. GASTROINTESTINAL: Abdomen soft, non-tender, nondistended. No hepato-splenomegaly , or palpable masses. No guarding. MUSCULOSKELETAL: Extremities without clubbing, cyanosis, or edema. No joint tenderness, effusion, or edema noted. No calf tenderness. Negative Homans sign bilaterally. NEUROLOGICAL: Awake and alert. Cranial nerves II through XII intact. Motor and sensory grossly within normal limits. Five out of 5 muscle strength in all muscle groups. Normal speech. : Rectal/prostate exam: contraindicated by the acute prostatitis. Pleasant male. in room. Laboratory Laboratory Tests Test 04/17/16 04/17/16 12:50 14:00 White Blood Count 15.2 Red Blood Count 5.79 Hemoglobin 16.3 Hematocrit 49.7 Mean Corpuscular Volume 85.9 Mean Corpuscular Hemoglobin 28.1 Mean Corpuscular Hemoglobin 32.8 Concent Red Cell Distribution Width 12.8 Platelet Count 322 Mean Platelet Volume 7.2 Neutrophils (%) (Auto) 83.1 Lymphocytes (%) (Auto) 7.4 Monocytes (%) (Auto) 6.2 Eosinophils (%) (Auto) 0.3 Basophils (%) (Auto) 3.0 Neutrophils # (Auto) 12.7 Lymphocytes # (Auto) 1.1 Monocytes # (Auto) 0.9 Eosinophils # (Auto) 0.0 Basophils # (Auto) 0.5 CBC Comment AUTO DIFF Differential Comment AUTO DIFF CONFIRMED Sodium Level 139 Potassium Level 3.9 Chloride Level 102 Carbon Dioxide Level 23.9 Anion Gap 13 Blood Urea Nitrogen 11 Creatinine 1.00 Estimat Glomerular Filtration 74 Rate Random Glucose 117 Lactic Acid Level 2.0 Calcium Level 9.1 Total Bilirubin 1.4 Aspartate Amino Transf 13 (AST/SGOT) Alanine Aminotransferase 18 (ALT/SGPT) Alkaline Phosphatase 82 Total Protein 8.3 Albumin 3.7 Urine Collection Type CLEAN CATCH Urine Color YELLOW Urine Turbidity CLOUDY Urine pH 8.5 Urine Specific [place] 1.020 Urine Protein 30 Urine Glucose (UA) NEG Urine Ketones 15 Urine Occult Blood LARGE Urine Nitrite NEG Urine Bilirubin NEG Urine Leukocyte Esterase MOD Urine RBC 0-3 Urine WBC 25-49 Urine WBC Clumps OCC Microscopic Urinalysis Comment CULTURE INDICATED Date/Time Procedure Status Source Growth 04/17/16 14:00 Urine Culture Received Urine Clean Catch Pending 04/17/16 13:05 Aerobic Blood Culture Received Blood Peripheral Pending 04/17/16 13:05 Anaerobic Blood Culture Received Blood Peripheral Pending Result Diagram: 04/17/16 1250 04/17/16 1250 Course Still febrile. Assessment and Plan Problem List: (1) Sepsis ICD Code: A41.9 Status: Acute (2) Prostatitis ICD Code: N41.9 Status: Acute (3) Urinary tract infection ICD Code: N39.0 Status: Acute (4) Urinary retention ICD Code: R33.9 Status: Acute Assessment and Plan REC: palomares catheter due to near retention of urine. Pt. agrees. Gentamicin is best antibiotic for acute prostatitis. But await Urine C&S for confirmation. F/U with Dr. Harper after discharge. Dr. Harper to remove the palomares later as an OP. Discussed Condition With Dr. Valenzuela, patient, . Problem Qualifiers (1) Sepsis: Qualified Code: A41.9 - Sepsis, due to unspecified organism (2) Urinary tract infection: Qualified Code: N30.00 - Acute cystitis without hematuria Gael Gonzales MD Apr 17, 2016 17:44
[2016-04-17] MEDS: oxyCODONE/ACETAMINOPHEN 10 MG/325 MG TAB PO PRN (20:42)
[2016-04-17] MEDS: cefTRIAXone INJ 2,000 MG in SODIUM CHLORIDE 0.9% INJ 100 ML IV SCH (20:46)
[2016-04-17] MEDS: ATORVASTATIN 40 MG TAB PO SCH (22:28)
[2016-04-17] MEDS: SODIUM CHLORIDE 0.9% FLUSH 5 ML FLUSH FLUSH SCH (22:29)
[2016-04-18] VITALS: BP 102/61; PULSE 83; RESP 20; TEMP 99.6; O2SAT 99
[2016-04-18] MEDS: SODIUM CHLOR 0.9% 1000 ML INJ 1,000 ML IV SCH ×3 (01:50→20:18)
[2016-04-18] MEDS: oxyCODONE/ACETAMINOPHEN 10 MG/325 MG TAB PO PRN ×4 (03:51→20:09)
[2016-04-18] MEDS: DOCUSATE SODIUM 100 MG CAP PO SCH ×3 (03:51→20:10)
[2016-04-18 04:00] VITALS: BP 100/59; PULSE 80; RESP 20; TEMP 99.3; O2SAT 96
[2016-04-18] MEDS: INSULIN ASPART SUPPLEMENTAL SCALE SQ SCH ×4 (05:15→20:15)
[2016-04-18 06:20] LABS: AUTOMATED NEUTROPHIL # 10.6 TH/MM3 (1.8-7.7); BASOPHIL # 0.1 TH/MM3 (0-0.2); BASOPHIL % 0.4 % (0.0-2.0); EOSINOPHIL % 0.2 % (0.0-4.0); HEMATOCRIT 38.7 % (39.0-51.0); LYMPH % 7.7 % (9.0-44.0); MEAN CELL VOLUME 87.9 FL (80.0-100.0); MEAN CORPUSCULAR HEMOGLOBIN 29.5 PG (27.0-34.0); MEAN CORPUSCULAR HGB CONC 33.5 % (32.0-36.0); MONO % 9.2 % (0.0-8.0); NEUT % 82.5 % (16.0-70.0); PLATELET COUNT 200 TH/MM3 (150-450); RED BLOOD COUNT 4.41 MIL/MM3 (4.50-5.90); RED CELL DISTRIBUTION WIDTH 12.9 % (11.6-17.2); WHITE BLOOD COUNT 12.9 TH/MM3 (4.0-11.0)
[2016-04-18 06:34] LABS: HEMO FLAGS AUTO DIFF
[2016-04-18 06:41] LABS: BICARBONATE 20.8 MEQ/L (21.0-32.0); POTASSIUM 3.9 MEQ/L (3.5-5.1)
[2016-04-18 07:18] LABS: SCAN/DIFF AUTO DIFF CONFIRMED
[2016-04-18 08:00] VITALS: BP 105/64; PULSE 72; PULSE 76; RESP 18; TEMP 97.9; O2SAT 96
[2016-04-18] MEDS: SODIUM CHLORIDE 0.9% FLUSH 5 ML FLUSH FLUSH SCH ×2 (08:36→20:12)
[2016-04-18] MEDS: ENALAPRIL MALEATE 10 MG TAB PO SCH (08:36)
[2016-04-18] MEDS: RAPAFLO 8 MG PO SCH (08:36)
--- NOTE | 2016-04-18 10:51 | HHI.PR ---
Subjective Remarks Patient seen and examined today with Dr. Valenzuela. Patient states that he is feeling much better since the Jacobsen has been placed. No longer experiencing any fever, chills. Awaiting culture for final disposition Objective Vitals Vital Signs Date Time Temp Pulse Resp B/P Pulse Ox O2 Delivery O2 Flow Rate FiO2 04/18/16 08:00 76 04/18/16 08:00 97.9 72 18 105/64 96 04/18/16 04:00 99.3 80 20 100/59 96 04/18/16 00:00 99.6 83 20 102/61 99 04/17/16 20:10 87 04/17/16 20:00 99.3 92 20 113/70 98 04/17/16 18:02 98.8 97 18 125/70 98 04/17/16 15:51 102 16 106/62 98 Nasal Cannula 2 04/17/16 14:12 93 16 146/74 100 Nasal Cannula 2 04/17/16 13:18 100 Nasal Cannula 2 04/17/16 13:17 16 100 Room Air 04/17/16 13:15 98.8 04/17/16 12:45 98.3 114 16 135/83 100 Room Air 04/17/16 12:26 101.5 123 16 138/82 100 I/O 04/17/16 04/17/16 04/17/16 04/18/16 04/18/16 04/18/16 07:00 15:00 23:00 07:00 15:00 23:00 Intake Total 2200 ml 100 ml 1320 ml Output Total 650 ml 525 ml Balance 2200 ml -550 ml 795 ml Intake Oral 120 ml IV Total 2200 ml 100 ml 1200 ml Output Urine Total 650 ml 525 ml Bladder Scan Volume Amount 337 ml 482 ml # Voids 1 # Bowel Movements 0 Result Diagram: 04/18/16 0600 04/18/16 0600 Objective Remarks GENERAL: Well-developed, well-nourished, in no acute distress. alert and orientated HEENT: Head is normocephalic without any lesions or masses noted. Facial features are symmetric. Eyes: Extraocular muscles are intact. NECK: Supple without any masses. Trachea midline no deviation. No JVD, CARDIAC: Regular rhythm, regular rate. S1/S2 are heard. No murmurs gallops or rubs. LUNGS: Clear to auscultation bilaterally. No wheeze, rhonchi or rales. No use of accessory muscles on inspiration or expiration. ABDOMEN: Soft, nontender. Nondistended. Bowel sounds heard in all 4 quadrants. No organomegaly or masses. Negative rebound, negative guarding. Jacobsen catheter is in place with clear urine EXTREMITIES: No edema, pulses are equal bilaterally. No cyanosis or clubbing NEUROLOGY: Mood and affect appear appropriate. Cranial nerves II through XII grossly intact. Moving all extremities, speech is clear Urinary Catheter: Yes Assessment to: Continue Jacobsen insert reason: Obstruction/Retention Vascular Central Line Catheter: No A/P Assessment and Plan -Sepsis due to UTI and prostatitis. Improving. S/p prostate biopsy on 04/[address] Harper. Was on Cipro for the past 10 days and has just completed it yesterday. Vital signs stable and lactic acid only 2. continue with IV fluids , IV antibiotics of gentamicin and Rocephin. Follow-up urine culture and blood cultures. -Difficulty voiding. Postvoid residual is 482. Consulted urology - d/w Dr. Choi. Who recommended await urine culture for confirmation, the Jacobsen in place to removed as outpatient. -Prediabetes - hold metformin while inpatient. -HTN - cont enalapril -BPH - continue rapaflo, pt encouraged to take it consistently. -Chronic low back pain / DJD - for L3-L4 laminectomy in near future - cont percocet as needed, colace scheduled -DVT px - SCDs Written by Edward Fisher PA-C, acting as scribe for Dr. Valenzuela on 04/18/16 at 1405. The documentation accurately reflects the work and decisions performed face-to- face by Dr. Valenzuela on 04/18/16 at 1405. Discharge Planning I explained to the patient that likely discharge home will be home tomorrow with Jacobsen in place and outpatient follow-up with Dr. keys later this week. We are awaiting final urine cultures. Edward Fisher Apr 18, 2016 10:51 Binta Valenzuela MD Apr 18, 2016 15:38 Follow-up primary medical doctor one week, urologist in one week Edward Fisher Apr 18, 2016 10:51
[2016-04-18 12:00] VITALS: BP 109/68; PULSE 72; RESP 18; TEMP 98; O2SAT 96
[2016-04-18] MEDS: GENTAMICIN IV SCH (14:03)
[2016-04-18] MEDS: SODIUM CHLORIDE 0.9% IV SCH (14:03)
[2016-04-18 16:00] VITALS: BP 110/71; PULSE 75; RESP 18; TEMP 98.1; O2SAT 95
[2016-04-18 20:00] VITALS: BP 129/71; PULSE 75; PULSE 83; RESP 20; TEMP 97.6; O2SAT 99
[2016-04-18] MEDS: ATORVASTATIN 40 MG TAB PO SCH (20:10)
[2016-04-18] MEDS: cefTRIAXone INJ 2,000 MG in SODIUM CHLORIDE 0.9% INJ 100 ML IV SCH (20:16)
[2016-04-19] VITALS: BP 122/79; PULSE 66; RESP 20; TEMP 98.1; O2SAT 97
[2016-04-19] MEDS: oxyCODONE/ACETAMINOPHEN 10 MG/325 MG TAB PO PRN ×3 (00:19→11:39)
[2016-04-19 04:00] VITALS: BP 127/81; PULSE 90; RESP 20; TEMP 96.3; O2SAT 98
[2016-04-19] MEDS: INSULIN ASPART SUPPLEMENTAL SCALE SQ SCH ×2 (05:19→11:00)
[2016-04-19 05:43] LABS: AUTOMATED NEUTROPHIL # 4.4 TH/MM3 (1.8-7.7); BASOPHIL % 0.7 % (0.0-2.0); EOSINOPHIL # 0.1 TH/MM3 (0-0.4); HEMATOCRIT 37.3 % (39.0-51.0); HEMO FLAGS DIFF FINAL; LYMPH % 16.9 % (9.0-44.0); LYMPHOCYTE # 1.1 TH/MM3 (1.0-4.8); MEAN CELL VOLUME 87.3 FL (80.0-100.0); MEAN CORPUSCULAR HEMOGLOBIN 29.8 PG (27.0-34.0); MEAN CORPUSCULAR HGB CONC 34.1 % (32.0-36.0); MONO % 10.3 % (0.0-8.0); NEUT % 70.1 % (16.0-70.0); PLATELET COUNT 195 TH/MM3 (150-450); RED BLOOD COUNT 4.28 MIL/MM3 (4.50-5.90); RED CELL DISTRIBUTION WIDTH 12.6 % (11.6-17.2); WHITE BLOOD COUNT 6.3 TH/MM3 (4.0-11.0)
[2016-04-19 08:00] VITALS: BP 123/83; PULSE 68; RESP 18; TEMP 97.5; O2SAT 97
[2016-04-19] MEDS: SODIUM CHLORIDE 0.9% FLUSH 5 ML FLUSH FLUSH SCH (09:00)
[2016-04-19] MEDS: ENALAPRIL MALEATE 10 MG TAB PO SCH (09:45)
[2016-04-19] MEDS: DOCUSATE SODIUM 100 MG CAP PO SCH (09:46)
[2016-04-19] MEDS: SODIUM CHLOR 0.9% 1000 ML INJ 1,000 ML IV SCH (09:46)
[2016-04-19] MEDS: RAPAFLO 8 MG PO SCH (11:38)
[2016-04-19] MEDS: GENTAMICIN IV SCH (11:39)
[2016-04-19] MEDS: SODIUM CHLORIDE 0.9% IV SCH (11:39)
[2016-04-19 12:00] VITALS: BP 123/83; PULSE 68; RESP 18; TEMP 97.8; O2SAT 97
[2016-04-19 13:00] VITALS: RESP 18
[2016-04-19] MEDS ORDERED: guaiFENesin E.R. 600 MG TAB PO SCH (13:15)
[2016-04-19] MEDS ORDERED: OXYC-405 PO (13:16)
[2016-04-19] MEDS ORDERED: CIPR-9 PO (13:17)
[2016-04-19] MEDS ORDERED: BACT800T5 PO (13:21)
--- NOTE | 2016-04-19 13:23 | HHI.DCPOC ---
Discharge Care Plan Diagnosis: (1) Prostatitis (2) Urinary retention Goals to Promote Your Health * To prevent worsening of your condition and complications * To maintain your health at the optimal level Directions to Meet Your Goals Take your medications as prescribed Follow your dietary instruction Follow activity as directed Keep your appointments as scheduled Take your immunizations and boosters as scheduled If your symptoms worsen call your PCP, if no PCP go to Urgent Care Center or Emergency Room Smoking is Dangerous to Your Health. Avoid second hand smoke Call the 24-hour hour crisis hotline for domestic abuse at [place] Hicks MD Apr 19, 2016 13:23
--- NOTE | 2016-04-19 13:23 | HHI.DS ---
Discharge Summary Admission Date Apr 17, 2016 at 14:58 Discharge Date: Apr 19, 2016 Admitting Diagnosis UTI, SEPSIS (1) Sepsis ICD Code: A41.9 (2) Prostatitis ICD Code: N41.9 (3) Urinary tract infection ICD Code: N39.0 (4) Urinary retention ICD Code: R33.9 Procedures palomares placed Brief History - From Admission This is a pleasant 71 year-old female with past medical history prediabetes, recently diagnosed with BPH, who underwent a prostate biopsy with Dr. Harper on April 04. He was prescribed a course of Cipro which she completed yesterday. This morning he woke up with severe low back pain and a fever of 104. He also had a small amount of blood in his underwear which has not been unusual since the prostate biopsy however he states it was mixed with yellowish fluid. He states the back pain is his typical low back pain for which he sees Dr. Cotter and they're planning to do a L4 to L5 laminectomy in the near future. He also had a fever of 104 this morning. The patient states that over the past several months he's had intermittent problems with urine straining and incomplete emptying of his bladder. He states that he takes Rapaflo intermittently but has been taking it over the past 2-3 days. He is here like he is having a lot of difficulty getting urine out and thinks he may be retaining urine. His bladder scan at bedside is 360 but he feels he can void now. I've asked the nurse to do a postvoid residual bladder volume. The patient denies any abdominal pain. He states that he did have a mild amount of anal pain this morning when he woke. Patient denies nausea or vomiting. Denies chills. In the ER he was found to be febrile with temperature of 101, white blood cell count of 15,000 with mild left shift, pulse initially was 122. Lactic acid 2. Blood pressure stable. Patient received 2 L IV fluid bolus blood cultures and urine cultures and a dose of gentamicin and Zosyn. CBC/BMP: 04/19/16 0520 04/19/16 0520 Significant Findings Laboratory Tests Test 04/17/16 04/17/16 04/18/16 04/19/16 12:50 14:00 06:00 05:20 White Blood Count 15.2 TH/MM3 12.9 TH/MM3 (4.0-11.0) (4.0-11.0) Neutrophils (%) (Auto) 83.1 % 82.5 % 70.1 % (16.0-70.0) (16.0-70.0) (16.0-70.0) Lymphocytes (%) (Auto) 7.4 % 7.7 % (9.0-44.0) (9.0-44.0) Basophils (%) (Auto) 3.0 % (0.0-2.0) Neutrophils # (Auto) 12.7 TH/MM3 10.6 TH/MM3 (1.8-7.7) (1.8-7.7) Basophils # (Auto) 0.5 TH/MM3 (0-0.2) Estimat Glomerular Filtration 74 ML/MIN (>89) 88 ML/MIN (>89) 83 ML/MIN (>89) Rate Random Glucose 117 MG/DL (74-106) Total Bilirubin 1.4 MG/DL (0.2-1.0) Aspartate Amino Transf 13 U/L (15-37) (AST/SGOT) Total Protein 8.3 GM/DL (6.4-8.2) Urine Turbidity CLOUDY (CLEAR) Urine Protein 30 mg/dL (NEG-TRACE) Urine Ketones 15 mg/dL (NEG) Urine Occult Blood LARGE (NEG) Urine Leukocyte Esterase MOD (NEG) Urine WBC 25-49 /hpf (0-5) Urine WBC Clumps OCC (NONE) Red Blood Count 4.41 MIL/MM3 4.28 MIL/MM3 (4.50-5.90) (4.50-5.90) Hematocrit 38.7 % 37.3 % (39.0-51.0) (39.0-51.0) Monocytes (%) (Auto) 9.2 % (0.0-8.0) 10.3 % (0.0-8.0) Monocytes # (Auto) 1.2 TH/MM3 (0-0.9) Chloride Level 110 MEQ/L (98-107) Carbon Dioxide Level 20.8 MEQ/L (21.0-32.0) Calcium Level 8.1 MG/DL (8.5-10.1) Hemoglobin 12.7 GM/DL (13.0-17.0) Imaging Last Impressions Chest X-Ray 04/17/16 1258 Signed Impressions: Service Date/Time: Sunday, April 17, 2016 13:42 - CONCLUSION: No acute disease. Kenneth Santoyo MD FACR PE at Discharge GENERAL: Well-developed, well-nourished, in no acute distress. alert and orientated HEENT: Head is normocephalic without any lesions or masses noted. Facial features are symmetric. Eyes: Extraocular muscles are intact. NECK: Supple without any masses. Trachea midline no deviation. No JVD, CARDIAC: Regular rhythm, regular rate. S1/S2 are heard. No murmurs gallops or rubs. LUNGS: Clear to auscultation bilaterally. No wheeze, rhonchi or rales. No use of accessory muscles on inspiration or expiration. ABDOMEN: Soft, nontender. Nondistended. Bowel sounds heard in all 4 quadrants. No organomegaly or masses. Negative rebound, negative guarding. Palomares catheter is in place with clear urine EXTREMITIES: No edema, pulses are equal bilaterally. No cyanosis or clubbing NEUROLOGY: Mood and affect appear appropriate. Cranial nerves II through XII grossly intact. Moving all extremities, speech is clear Pt update on day of discharge Patient seen and evaluated in follow-up for prostatitis and sepsis with UTI. Hospital Course This patient was seen and treated for acute prostatitis with urinary retention. Patient did well. Urological consultation was appreciated. Regulations for indwelling Palomares due to urinary retention were made. Fevers and chills resolved. Patient's cultures have shown less than 10,000 colony forming units. Patient tolerated Rocephin and gentamicin well. Pain is better. Pt Condition on Discharge: Good Discharge Disposition: Discharge Home Discharge Time: > 30 minutes Discharge Instructions DIET: Follow Instructions for: As Tolerated, No Restrictions Activities you can perform: Regular-No Restrictions Follow up Referrals: Urology - 1 Week with Gael Gonzales MD New Medications: Oxycodone ER (Oxycodone ER) 20 Mg Tab 20 MG PO Q12HR Pain Management #20 Ref 0 TAB Sulfamethoxazole-Trimethoprim (Bactrim DS) 800-160 Mg Tab 1 TAB PO BID Infection #14 Ref 0 TAB Continued Medications: Enalapril (Enalapril) 20 Mg Tab 20 MG PO DAILY #30 Ref 0 TAB Metformin (Metformin) 500 Mg Tab 500 MG PO BIDPC With meals Blood Sugar Management #60 Ref 0 TAB Oxycodone-Acetaminophen (Percocet) 5-325 mg Tab 1 TAB PO Q6H PRN PAIN Ref 0 TAB Rosuvastatin (Crestor) 40 Mg Tab 40 MG PO HS Cholesterol Management #30 Ref 0 TAB Silodosin (Rapaflo) 8 Mg Cap 8 MG PO DAILY Manage Prostate Problems #30 Ref 0 CAP Winter Hicks MD Apr 19, 2016 13:22
[2016-04-19] MEDS ORDERED: OXYB5TAB10 PO (22:21)
[2016-04-19] MEDS ORDERED: COLA100C3 PO (22:21)
== END 2016-04-19 15:00 | disposition home or self-care (01) | DRG 872 ==
LOC: PHED 12:20 → PHEDA 14:58 → PH3B 16:05
PROVIDERS: ADMIT Hospitalist; ATTEND Hospitalist
DX: A41.9 Sepsis, unspecified organism (principal); N39.0 Urinary tract infection, site not specified; E11.9 Type 2 diabetes mellitus without complications; I10 Essential (primary) hypertension; N41.0 Acute prostatitis; N40.0 Benign prostatic hyperplasia without lower urinary tract symptoms; M54.5 Low back pain; M19.90 Unspecified osteoarthritis, unspecified site; G89.29 Other chronic pain; E78.00 Pure hypercholesterolemia, unspecified; K62.89 Other specified diseases of anus and rectum
CPT/HCPCS: 71010; 80048; 80053; 80170; 81001; 82565; 82948; 83605; 85025; 87040; 87086; 96361; 96365; 99283; J0696; J1580; J2543; J7030

== ENCOUNTER 2016-04-19 19:07 | Emergency (ER) | payer MEDICARE ==
[~2016-04-19] VITALS: Ht 175.3 cm; Wt 77.8 kg
[~2016-04-19 19:07] MED LIST changes: +BACT800T5 PO; +CIPR-9 PO; +OXYC-405 PO
[2016-04-19 19:15] VITALS: BP 150/111; PULSE 110; RESP 18; TEMP 97.7; O2SAT 100
[2016-04-19 20:38] VITALS: BP 149/90; PULSE 93; RESP 20; O2SAT 97
[2016-04-19] MEDS ORDERED: OXYBUTYNIN CHLORIDE 5 MG TAB PO ONE (21:15)
[2016-04-19] MEDS ORDERED: OXYB5TAB10 PO (22:21)
[2016-04-19] MEDS ORDERED: COLA100C3 PO (22:21)
--- NOTE | 2016-04-19 22:22 | PD ---
HPI Chief Complaint: Complaint Time Seen by Provider: 19:30 Travel History International Travel<30 days: No Contact w/Intl Traveler<30days: No Traveled to known affect area: No History of Present Illness HPI Patient is a 71-year-old male who comes in complaining of pain from his Jacobsen catheter. He was admitted Monday for urosepsis after a prostate biopsy and was discharged earlier today. He says he is having severe burning from the catheter and feels a lot of pressure in his bladder. He was only discharged at 4 PM today. She has picked up his prescriptions from the pharmacy. He has no other complaints at this time. He had lab work that was drawn this morning is all within normal limits. PFSH Past Medical History Autoimmune Disease: No Cancer: No Cardiovascular Problems: Yes High Cholesterol: Yes Diabetes: Yes (Borderline/Metformin ) Patient Takes Glucophage: No Diminished Hearing: No Endocrine: No Genitourinary: Yes Hypertension: Yes Immune Disorder: No Musculoskeletal: Yes Neurologic: No Psychiatric: No Reproductive: No Respiratory: No Thyroid Disease: No Past Surgical History Other Surgery: Yes Social History Alcohol Use: Yes (occas. wine) Tobacco Use: No Substance Use: No Allergies-Medications (Allergen,Severity, Reaction): Coded Allergies: No Known Allergies (Unverified , 04/19/16) Reported Meds & Prescriptions Reported Meds & Active Scripts Active Colace (Docusate Sodium) 100 Mg Cap 100 Mg PO BID Ditropan (Oxybutynin Chloride) 5 Mg Tab 5 Mg PO Q12HR Bactrim DS (Sulfamethoxazole-Trimethoprim) 800-160 Mg Tab 1 Tab PO BID Oxycodone ER (Oxycodone HCl) 20 Mg Tab 20 Mg PO Q12HR Reported Crestor (Rosuvastatin Calcium) 40 Mg Tab 40 Mg PO HS Percocet (Oxycodone-Acetaminophen) 5-325 mg Tab 1 Tab PO Q6H PRN Metformin (Metformin HCl) 500 Mg Tab 500 Mg PO BIDPC With meals Enalapril (Enalapril Maleate) 20 Mg Tab 20 Mg PO DAILY Rapaflo (Silodosin) 8 Mg Cap 8 Mg PO DAILY Review of Systems Except as stated in HPI: all other systems reviewed are Neg General / Constitutional: No: Fever, Chills HENT: No: Headaches Cardiovascular: No: Chest Pain or Discomfort Respiratory: Positive: Cough, No: Shortness of Breath Gastrointestinal: Positive: Abdominal Pain, No: Nausea, Vomiting Genitourinary: Positive: Dysuria, No: Decreased Urinary Output Skin: No Change in Pigmentation Neurologic: No: Weakness, Dizziness Physical Exam Narrative GENERAL: Awake and alert in moderate distress due to pain. SKIN: Warm and dry. HEAD: Atraumatic. Normocephalic. EYES: Pupils equal and round. No scleral icterus. ENT: Mucous membranes pink and moist. NECK: Trachea midline. No JVD. CARDIOVASCULAR: Regular rate and rhythm. No murmur appreciated. RESPIRATORY: No accessory muscle use. Clear to auscultation. Breath sounds equal bilaterally. GASTROINTESTINAL: Abdomen soft, non-tender, nondistended. No tenderness over palpation of the bladder. Jacobsen catheter in place. MUSCULOSKELETAL: No obvious deformities. No clubbing. No cyanosis. No edema. NEUROLOGICAL: Awake and alert. No obvious cranial nerve deficits. Motor grossly within normal limits. Normal speech. PSYCHIATRIC: Appropriate mood and affect; insight and judgment normal. Data Data Last Documented VS Vital Signs Date Time Temp Pulse Resp B/P Pulse Ox O2 Delivery O2 Flow Rate FiO2 04/19/16 20:38 93 20 149/90 97 04/19/16 19:15 97.7 Orders Oxybutynin (Ditropan) (04/19/16 21:15) [facility] Medical Decision Making Medical Screen Exam Complete: Yes Emergency Medical Condition: Yes Medical Record Reviewed: Yes Differential Diagnosis UTI versus bladder spasm versus Jacobsen catheter malfunction Narrative Course Patient is a 71-year-old male comes in complaining of pain in his bladder and burning with urination. Exam shows fully catheter in place. I reviewed his labs from earlier today and they did not show anything concerning. Jacobsen irrigated without issue. Jacobsen is draining urine properly. I spoke with Dr. Smalls of urology who suggests giving him ditropan or Oxybutinin. Patient given Oxybutinin with good relief of his symptoms. He will be discharged with a prescription for the Oxybutinin and advised to continue his other medications as directed. Advised to call his urologist tomorrow morning. He is comfortable with discharge at this time. Advised to return to the ED as needed for any worsening symptoms. Diagnosis Primary Impression: Bladder spasms Additional Impression: Prostatitis Qualified Code: N41.9 - Prostatitis, unspecified prostatitis type Patient Instructions: Jacobsen Catheter Placement and Care (ED), General Instructions, Prostatitis (ED) Additional Instructions: Follow up with urology. Take the Oxybutinin for spasms. Take all of your antibiotics. Take your pain medication as needed. Return to the ED as needed for any worsening symptoms. Take stool softeners unless you develop diarrhea. Scripts Docusate Sodium (Colace)100 Mg [id number] Mg PO BID #60 CAP Ref 0 Prov:Margi Summers MD 04/19/16 Oxybutynin (Ditropan)5 Mg Tab5 Mg PO Q12HR #60 TAB Ref 0 Prov:Margi Summers MD 04/19/16 Disposition: 01 DISCHARGE HOME Condition: Stable Margi Summers MD Apr 19, 2016 22:21
== END 2016-04-19 22:50 | disposition home or self-care (01) ==
LOC: PHED 19:07
DX: N32.89 Other specified disorders of bladder (principal); N41.9 Inflammatory disease of prostate, unspecified; E78.00 Pure hypercholesterolemia, unspecified
CPT/HCPCS: 99283

== ENCOUNTER → 2016-05-11 | Outpatient (CLI) | payer MEDICARE ==
[~2016-05-11] MED LIST changes: -CIPR-9 PO; +COLA100C3 PO; -CYCL5TAB PO; +OXYB5TAB10 PO; +OXYC1TAB35 PO; +OXYC1TAB36 PO; +OXYC1TAB63 PO; +WALKER WHEELS/F1 MIS
[2016-05-11 12:25] LABS: AUTOMATED NEUTROPHIL # 3.5 TH/MM3 (1.8-7.7); BASOPHIL % 0.6 % (0.0-2.0); EOSINOPHIL # 0.2 TH/MM3 (0-0.4); EOSINOPHIL % 3.3 % (0.0-4.0); HEMO FLAGS DIFF FINAL; LYMPH % 28.3 % (9.0-44.0); LYMPHOCYTE # 1.7 TH/MM3 (1.0-4.8); MEAN CELL VOLUME 86.3 FL (80.0-100.0); MEAN CORPUSCULAR HEMOGLOBIN 28.7 PG (27.0-34.0); MEAN CORPUSCULAR HGB CONC 33.2 % (32.0-36.0); MONO % 9.7 % (0.0-8.0); NEUT % 58.1 % (16.0-70.0); PLATELET COUNT 227 TH/MM3 (150-450); RED BLOOD COUNT 5.44 MIL/MM3 (4.50-5.90); RED CELL DISTRIBUTION WIDTH 13.9 % (11.6-17.2)
[2016-05-11 12:30] LABS: BACTERIA, URINE RARE /hpf; BLOOD, URINE NEG (NEG); GLUCOSE,URINE NEG (NEG); KETONE, URINE NEG (NEG); MUCUS URINE FEW /lpf (OCC); NITRITE,URINE NEG (NEG); PH, URINE 5.5 (5.0-8.5); TRANSITIONAL EPI CELLS, URINE <1 /hpf; URINE COLOR YELLOW (YELLW/STRAW)
[2016-05-11 12:37] LABS: COMMENT (UR) CULT NOT INDICATED; CULTURE IF INDICATED CULT NOT INDICATED
[2016-05-11 12:44] LABS: PROTHROMBIN TIME - PATIENT 11.1 SEC (9.8-11.6)
== END ==
LOC: CPRE 09:44
PROVIDERS: ATTEND Orthopaedic Surgery Orthopaedic Surgery of the Spine
DX: Z01.818 Encounter for other preprocedural examination (principal); M48.06 Spinal stenosis, lumbar region; Z79.01 Long term (current) use of anticoagulants
CPT/HCPCS: 36415; 81001; 85025; 85610; 85730

== ENCOUNTER → 2016-06-08 | Outpatient (CLI) | payer MEDICARE ==
[~2016-06-08] MED LIST changes: -BACT800T5 PO; -COLA100C3 PO; -OXYB5TAB10 PO; -OXYC-405 PO
[2016-06-08 10:42] LABS: BLOOD, URINE NEG (NEG); COMMENT (UR) CULT NOT INDICATED; CULTURE IF INDICATED CULT NOT INDICATED; GLUCOSE,URINE NEG (NEG); KETONE, URINE NEG (NEG); MUCUS URINE FEW /lpf (OCC); NITRITE,URINE NEG (NEG); URINE COLOR YELLOW (YELLW/STRAW)
[2016-06-08 10:43] LABS: AUTOMATED NEUTROPHIL # 2.7 TH/MM3 (1.8-7.7); BASOPHIL % 0.7 % (0.0-2.0); EOSINOPHIL # 0.2 TH/MM3 (0-0.4); EOSINOPHIL % 3.2 % (0.0-4.0); HEMATOCRIT 44.7 % (39.0-51.0); HEMO FLAGS DIFF FINAL; LYMPH % 32.9 % (9.0-44.0); LYMPHOCYTE # 1.8 TH/MM3 (1.0-4.8); MEAN CELL VOLUME 87.2 FL (80.0-100.0); MEAN CORPUSCULAR HEMOGLOBIN 29.2 PG (27.0-34.0); MEAN CORPUSCULAR HGB CONC 33.5 % (32.0-36.0); MONO % 13.3 % (0.0-8.0); NEUT % 49.9 % (16.0-70.0); PLATELET COUNT 212 TH/MM3 (150-450); RED BLOOD COUNT 5.12 MIL/MM3 (4.50-5.90); RED CELL DISTRIBUTION WIDTH 14.5 % (11.6-17.2); WHITE BLOOD COUNT 5.4 TH/MM3 (4.0-11.0)
[2016-06-08 10:47] LABS: APTT (PATIENT) 28.2 SEC (24.3-30.1); PROTHROMBIN TIME - PATIENT 10.9 SEC (9.8-11.6)
== END ==
LOC: CLAB 10:15
PROVIDERS: ATTEND Orthopaedic Surgery Orthopaedic Surgery of the Spine
DX: Q76.2 Congenital spondylolisthesis (principal); M48.06 Spinal stenosis, lumbar region; Z79.01 Long term (current) use of anticoagulants
CPT/HCPCS: 36415; 81001; 85025; 85610; 85730

== ENCOUNTER 2017-03-14 15:47 | Emergency (ER) | payer MEDICARE ==
[~2017-03-14] VITALS: Ht 175.3 cm; Wt 76.3 kg
[~2017-03-14 15:47] MED LIST changes: -OXYC1TAB63 PO; -PERC5TAB12 PO; -RAPA8CAP PO
[2017-03-14 16:07] VITALS: BP 152/92; PULSE 82; RESP 16; TEMP 97.9; O2SAT 99
[2017-03-14] MEDS ORDERED: MORPHINE SULFATE 4 MG/ML INJ IM ONE (17:30)
[2017-03-14] MEDS ORDERED: ACYCLOVIR 200 MG CAP PO ONE (17:30)
[2017-03-14] MEDS ORDERED: TIZA2TAB PO (17:32)
--- NOTE | 2017-03-14 17:34 | PD ---
HPI Chief Complaint: Pain: Acute or Chronic Time Seen by Provider: 17:11 Travel History International Travel<30 days: No Contact w/Intl Traveler<30days: No Traveled to known affect area: No History of Present Illness HPI 71yo M with PMH of chronic neck and back pain who follows with pain management presents to the ED with c/o rash on right chest going to her scapula that started 3 days ago. Said before the rash started, he had a tingling sensation on right chest. Had chicken pox before but never shingles. Denies any fever, visual changes, sob, n/v, abdominal pain, new focal weakness or numbness. Pt thought it was an infection so started taking cipro on his own. PFSH Past Medical History Autoimmune Disease: No Cancer: No Cardiovascular Problems: No High Cholesterol: Yes Diabetes: Yes Diminished Hearing: No Endocrine: No Genitourinary: No Hepatitis: No Hiatal Hernia: No Hypertension: Yes Immune Disorder: No Musculoskeletal: Yes (ARTHRITIS) Neurologic: No Psychiatric: No Reproductive: No Respiratory: No Thyroid Disease: No Past Surgical History AICD: No Body Medical Devices: NONE Ear Surgery: No Endocrine Surgery: No Eye Surgery: No Genitourinary Surgery: Yes (PROSTATE BX) Gynecologic Surgery: No Joint Replacement: No Oral Surgery: No Pacemaker: No Other Surgery: Yes Social History Alcohol Use: Yes (occas. wine) Tobacco Use: No Substance Use: No Allergies-Medications (Allergen,Severity, Reaction): Coded Allergies: No Known Allergies (Unverified , 06/21/16) Reported Meds & Prescriptions Reported Meds & Active Scripts Active Reported Tizanidine (Tizanidine HCl) 2 Mg Tab 2 Mg PO TID PRN Crestor (Rosuvastatin Calcium) 40 Mg Tab 40 Mg PO HS Metformin (Metformin HCl) 500 Mg Tab 500 Mg PO BIDPC With meals Enalapril (Enalapril Maleate) 20 Mg Tab 20 Mg PO DAILY Review of Systems Except as stated in HPI: all other systems reviewed are Neg Physical Exam Narrative GENERAL: 71yo M in mild distress. SKIN: Clusters of vesicular rash with erythema in T4 dermatome on right chest, axilla and scapula. Does not cross midline. HEAD: Atraumatic. Normocephalic. EYES: Pupils equal and round at 3mm bilaterally. EOMI. No scleral icterus. No injection or drainage. CARDIOVASCULAR: Regular rate and rhythm. No murmur appreciated. RESPIRATORY: No accessory muscle use. Clear to auscultation. Breath sounds equal bilaterally. GASTROINTESTINAL: Abdomen soft, non-tender, nondistended. MUSCULOSKELETAL: No obvious deformities. No clubbing. No cyanosis. No edema. NEUROLOGICAL: Awake and alert. No obvious cranial nerve deficits. Motor grossly within normal limits. Normal speech. PSYCHIATRIC: Appropriate mood and affect; insight and judgment normal. Data Data Last Documented VS Vital Signs Date Time Temp Pulse Resp B/P (MAP) Pulse Ox O2 Delivery O2 Flow Rate FiO2 03/14/17 17:51 17 03/14/17 16:07 97.9 82 152/92 (112) 99 Orders Orders Morphine Inj (Morphine Inj) (03/14/17 17:30) Acyclovir (Zovirax) (03/14/17 17:30) Acyclovir (Zovirax) (03/14/17 17:45) [facility] Medical Decision Making Medical Screen Exam Complete: Yes Emergency Medical Condition: Yes Differential Diagnosis Herpes zoster vs. atopic dermatitis Narrative Course 71yo M with pain where the rash is in right chest, axilla and right scapula for 3 days. Impression is herpes zoster. No rash on face or near the eye. No other complaints. He follows with pain management so I informed him I can give him something in the ED but cannot discharge with narcotic. But I can give him a few doses of gabapentin. Pt reevaluated after morphine here and feels much better. Pt is nontoxic appearing with no fever, tachycardia. Return precautions given. Diagnosis Primary Impression: Herpes zoster Qualified Codes: B02.9 - Zoster without complications Patient Instructions: General Instructions Departure Forms: Tests/Procedures Med/Other Pt SpecificInfo: Prescription(s) given Scripts Gabapentin (Gabapentin) 300 Mg Cap 300 MG PO HS, #7 CAP 0 Refills Prov: Anabel Newsome DO 03/14/17 Acyclovir (Acyclovir) 800 Mg Tab 800 MG PO 5 TIMES A DAY for Mgmt Viral Infection for 7 Days, TAB 0 Refills Prov: Anabel Newsome DO 03/14/17 Disposition: 01 DISCHARGE HOME Condition: Stable Anabel Newsome DO Mar 14, 2017 17:34
[2017-03-14] MEDS ORDERED: ACYCLOVIR 800 MG TAB PO ONE (17:45)
[2017-03-14 18:00] VITALS: BP 150/80; PULSE 76; RESP 16; O2SAT 97
[2017-03-14] MEDS ORDERED: GABA300C5 PO (19:01)
[2017-03-14] MEDS ORDERED: ACYC800T PO (19:01)
[2017-03-14 19:02] VITALS: BP 146/86; PULSE 71; RESP 18; O2SAT 97
--- NOTE | 2017-03-14 21:44 | EKG ---
Date Performed: 03/14/2017 Time Performed: 15:55:15 PTAGE: 71 years EKG: Sinus rhythm MARKED LEFT AXIS DEVIATION ABNORMAL ECG NO PREVIOUS TRACING DOCTOR: Jimmy Bolaños Interpretating Date/Time 03/14/2017 21:44:14
== END 2017-03-14 19:10 | disposition home or self-care (01) ==
LOC: PHED 15:47
DX: B02.9 Zoster without complications (principal); E11.9 Type 2 diabetes mellitus without complications; E78.00 Pure hypercholesterolemia, unspecified; I10 Essential (primary) hypertension; Z79.84 Long term (current) use of oral hypoglycemic drugs
CPT/HCPCS: 93005; 96372; 99284; J2270

== ENCOUNTER 2017-03-19 14:06 | Emergency (ER) | payer MEDICARE ==
[~2017-03-19] VITALS: Ht 175.3 cm; Wt 76.0 kg
[~2017-03-19 14:06] MED LIST changes: +ACYC800T PO; +GABA300C5 PO; -OXYC1TAB35 PO; -OXYC1TAB36 PO; +TIZA2TAB PO; -WALKER WHEELS/F1 MIS
[2017-03-19 14:21] VITALS: BP 185/95; PULSE 76; RESP 18; TEMP 97.5; O2SAT 99
[2017-03-19] MEDS ORDERED: LIDO1PAD52 TOPICAL (15:20)
--- NOTE | 2017-03-19 15:21 | PD ---
HPI Chief Complaint: Skin Problem Time Seen by Provider: 15:08 Travel History International Travel<30 days: No Contact w/Intl Traveler<30days: No Traveled to known affect area: No History of Present Illness HPI 71-year-old male here with continued pain at the site of shingles. He was previously seen on 03/14/17 and diagnosed with herpes zoster. He was discharged home on acyclovir and gabapentin which she has been compliant with. According to that note patient was not given any narcotic pain medication. Pain is unrelieved by [id number] Motrin. He denies chest pain, shortness breath, abdominal pain, paresthesia or weakness. PFSH Past Medical History Hx Anticoagulant Therapy: No Arthritis: Yes Autoimmune Disease: No Cancer: No Cardiovascular Problems: Yes (HTN, CHOL) High Cholesterol: Yes Diabetes: Yes Patient Takes Glucophage: Yes Diminished Hearing: No Endocrine: No Genitourinary: Yes (UTIS) Hepatitis: No Hiatal Hernia: No Hypertension: Yes Immune Disorder: No Musculoskeletal: Yes (ARTHRITIS) Neurologic: No Psychiatric: No Reproductive: No Respiratory: No Thyroid Disease: No Influenza Vaccination: Yes Past Surgical History AICD: No Body Medical Devices: NONE Ear Surgery: No Endocrine Surgery: No Eye Surgery: No Genitourinary Surgery: Yes (PROSTATE BX) Gynecologic Surgery: No Joint Replacement: No Oral Surgery: No Pacemaker: No Other Surgery: Yes Social History Alcohol Use: Yes (occas. wine) Tobacco Use: No Substance Use: No Allergies-Medications (Allergen,Severity, Reaction): Coded Allergies: No Known Allergies (Unverified Adverse Reaction, Unknown, 03/19/17) Reported Meds & Prescriptions Reported Meds & Active Scripts Active [place] (Hydrocodone-Acetaminophen) 5 Mg-325 Mg Tab 1 Tab PO Q6H PRN Lidocaine Patch 12 HR (Lidocaine) 5 % Patch 1 Patch TOPICAL DAILY PRN Remove patch after 12 hours Gabapentin 300 Mg Cap 300 Mg PO HS Acyclovir 800 Mg Tab 800 Mg PO 5 TIMES A DAY 7 Days Reported Tizanidine (Tizanidine HCl) 2 Mg Tab 2 Mg PO TID PRN Crestor (Rosuvastatin Calcium) 40 Mg Tab 40 Mg PO HS Metformin (Metformin HCl) 500 Mg Tab 500 Mg PO BIDPC With meals Enalapril (Enalapril Maleate) 20 Mg Tab 20 Mg PO DAILY Review of Systems Except as stated in HPI: all other systems reviewed are Neg Physical Exam Narrative GENERAL: Alert male in mild distress SKIN: Vesicular rash to the right anterior chest which extends to the right scapula HEAD: Normocephalic. EYES: No scleral icterus. No injection or drainage. NECK: Supple, trachea midline. No JVD or lymphadenopathy. CARDIOVASCULAR: Regular rate and rhythm without murmurs, gallops, or rubs. RESPIRATORY: Breath sounds equal bilaterally. No accessory muscle use. GASTROINTESTINAL: Abdomen soft, non-tender, nondistended. MUSCULOSKELETAL: No cyanosis, or edema. BACK: Nontender without obvious deformity. No CVA tenderness. Data Data Last Documented VS Vital Signs Date Time Temp Pulse Resp B/P (MAP) Pulse Ox O2 Delivery O2 Flow Rate FiO2 03/19/17 14:21 97.5 76 18 185/95 (125) 99 Orders Orders Ketorolac Inj (Toradol Inj) (03/19/17 15:30) Ed Discharge Order (03/19/17 15:28) MDM Medical Decision Making Medical Screen Exam Complete: Yes Emergency Medical Condition: Yes Differential Diagnosis Shingles, post herpetic neuralgia, Narrative Course 71-year-old male here with continued pain at the site of shingles. He was previously seen on 03/14/17 and diagnosed with herpes zoster. He was discharged home on acyclovir and gabapentin which she has been compliant with. According to that note patient was not given any narcotic pain medication. Pain is unrelieved by [id number] Motrin. He denies chest pain, shortness breath, abdominal pain, paresthesia or weakness. He is nontoxic appearing. His vital signs are stable. On exam he has a vesicular rash to his right anterior chest and back. Patient will be discharged home with a prescription of [place] and lidocaine patches. He has a follow-up appointment with his PCP tomorrow. They verbalize understanding and agrees to plan. She was given a shot of Toradol and had symptom improvement. Patient stable and ready for discharge Diagnosis Primary Impression: Shingles Qualified Codes: B02.9 - Zoster without complications Referrals: Primary Care Physician Additional Instructions: Follow-up with her doctor tomorrow as appointed. Continue the acyclovir and gabapentin. Return if he developed new or worsening symptoms. Scripts Hydrocodone-Acetaminophen ([place]) 5 Mg-325 Mg Tab 1 TAB PO Q6H Y for PAIN, #12 TAB 0 Refills Prov: Barry Godinez MD 03/19/17 Lidocaine Patch 12 HR (Lidocaine Patch 12 HR) 5 % Patch 1 PATCH TOPICAL DAILY Y for PAIN, #1 BOX 0 Refills Remove patch after 12 hours Prov: Linn Aguilar 03/19/17 Disposition: 01 DISCHARGE HOME Condition: Stable Linn Aguilar Mar 19, 2017 15:21
[2017-03-19] MEDS ORDERED: NORC5TAB PO (15:23)
[2017-03-19] MEDS ORDERED: KETOROLAC TROMETHAMINE 60 MG/2 ML (IM) VIAL IM ONE (15:30)
== END 2017-03-19 15:31 | disposition home or self-care (01) ==
LOC: PHEFT 14:06
DX: B02.9 Zoster without complications (principal); M19.90 Unspecified osteoarthritis, unspecified site; I10 Essential (primary) hypertension; E11.9 Type 2 diabetes mellitus without complications
CPT/HCPCS: 96372; 99284; J1885